=== PATIENT | male | born 1965 | race Caucasian/White ===

== ENCOUNTER → 2021-02-08 14:15 | Outpatient (CLI) | payer OTHER, SELFPAY ==
[2021-02-08 14:52] LABS: COVID19 -Nasal RAPID Negative (Negative)
== END ==
PROVIDERS: PCP Family Medicine; Visit Provider Surgery
DX: Z01.812 Encounter for preprocedural laboratory examination (principal); Z20.822 Contact with and (suspected) exposure to COVID-19
CPT/HCPCS: 87635; C9803

== ENCOUNTER 2021-02-09 09:03 | Day surgery (SDC) | payer OTHER, SELFPAY ==
--- NOTE | 2021-02-09 | PATH_ITS ---
[facility] [place] Accession Number: [id number] . 01 Material submitted: . PART A: cecum - CECAL POLYP PART B: sigmoid colon - SIGMOID WITH RANDOM BIOPSY PART C: rectum - RANDOM RECTUM BIOPSY . 02 Diagnosis: A. Cecum, Polyp, Biopsy: Tubular adenoma. . B. Sigmoid, Random Biopsy: Colonic mucosa with no diagnostic abnormality. Negative for active, chronic, and microscopic colitis. Negative for dysplasia and malignancy. . C. Rectum, Random Biopsy: Colonic mucosa with no diagnostic abnormality. Negative for active, chronic, and microscopic colitis. Negative for dysplasia and malignancy. MR 02/13/2021 1121 Local . 02 Electronically signed: . America Villa MD, Pathologist NPI- [id number] . 01 Gross description: . Part A: CECAL POLYP: Received in formalin is 1 fragment(s) of scott, soft tissue measuring 0.3 x 0.3 x 0.3 cm submitted entirely in 1 cassette(s) Part B: SIGMOID WITH RANDOM BIOPSY: Received in formalin are 8 fragment(s) of scott, soft tissue measuring 0.6 x 0.2 x 0.1 cm to 0.2 x 0.2 x 0.1 cm submitted entirely in 1 cassette(s) Part C: RANDOM RECTUM BIOPSY: Received in formalin are 2 fragment(s) of scott, soft tissue measuring 0.5 x 0.3 x 0.1 cm to 0.3 x 0.3 x 0.1 cm submitted entirely in 1 cassette(s) /QBJ 02/10/2021 0841 Local . 02 Pathologist provided ICD-10: Z12.0 . 02 CPT . 848837, 978976, [id number] Performed at: [address] [place] [address] [address], [place], [place] [id number] MD Ralph Jordan MD Phone: [phone] Performed at: [id number] [place] [id number] MD America Villa MD Phone: [phone]
[2021-02-09 09:19] VITALS: BP 116/74; PULSE 68; RESP 18; TEMP 36.3; O2SAT 97; BMI 34.0
[2021-02-09] MEDS: LACTATED RINGERS 1,000 ML 42 ML IV (09:49)
--- NOTE | 2021-02-09 10:38 | PM.HP.1 ---
History of Present Illness History of Present Illness Date Patient Seen: 02/09/21 Time Patient Seen: 10:38 Chief complaint: SDC Narrative: Bonifacio Silvestre is a 55 is here for colonoscopy. He had a colonoscopy about 5 years ago with a finding of a polyp. Patient History Medical History Chicken pox (~1978) Erectile dysfunction Fractures (~2014) Melanoma Obstructive sleep apnea Prediabetes Skin cancer Family & Social History Social History: household members spouse Tobacco & Substance use: Smoking Status Never smoker alcohol intake current alcohol intake frequency holiday/special occasion Substance Use Type marijuana Meds Home Medications and Allergies Home Medications Medication Instructions Recorded Confirmed Type sildenafil (pulm.hypertension) 20 80 - 100 mg PO PRN PRN MDD 100 02/09/21 02/09/21 History mg tablet Allergies Allergy/AdvReac Type Severity Reaction Status Date / Time No Known Drug Allergies Allergy Verified 02/09/21 09:14 Exam Vital Signs (past 8 hours): - 02/09/21 09:19 Temperature 97.4 F L Pulse Rate 68 Respiratory Rate 18 Blood Pressure 116/74 Pulse Oximetry 97 Oxygen Delivery Method Room Air Const General: healthy appearing Eyes General: appearance normal, both eyes and all related structures Resp Effort & Inspection: normal respiratory effort Assessment & Plan Assessment and plan (1) Colon cancer screening: Status: Acute Plan We will proceed with colonoscopy. We reviewed the risks and benefits. He would like to proceed. Time Spent With Patient Critical Care time: I spent a total of [] minutes of critical care time on this patient's care today; this time is exclusive of procedural time.
--- NOTE | 2021-02-09 10:39 | PM.PREOP ---
Pre-operative Note COVID-19 COVID-19 status: Negative Result date/Date tested (Pos, Neg/Pending): 02/08/21 Interval Note History & Physical reviewed/Exam performed by Physician: Yes Changes to H&P: No ASA Class (for procedural sedation): II
[2021-02-09] MEDS: MIDAZOLAM 5 MG/5 ML VIAL IV (11:16)
[2021-02-09] MEDS: fentaNYL 250 MCG/5 ML INJ IV (11:16)
--- NOTE | 2021-02-09 11:25 | PM.OP.COLON ---
Operative Date/Time/Diagnoses Date of procedure: 02/09/21 Time of procedure: 11:25 Pre-op diagnosis: History of colon polyp Post-op diagnosis: same Procedure & Clinicians Study performed: Colonoscopy Same procedure as scheduled: Yes Indications: History of colon polyps Surgeon: Davidson Mello Procedure Notes SCOAP/Timeout: Yes Procedure in detail: Procedure: The patient was brought to the endoscopy suite, placed in left lateral decubitus position. The patient was connected to monitoring devices. A time-out was performed. Sedation was administered. Once the patient was adequately sedated, a digital rectal exam was performed and was normal. The scope was then inserted and advanced to the cecum where the appendiceal orifice was identified and photographed. The scope was then slowly withdrawn over greater than 6 minutes. Mucosa was thoroughly inspected. There was a subcentimeter polyp in the cecum. There was removed with cold snare. There was some patchy erythema in the sigmoid and rectum. Random biopsies were taken from the sigmoid colon as well as the rectum. The scope was retroflexed in the rectum. No other abnormalities were noted. The scope was straightened and removed. The patient was awakened and brought to recovery. Versed: 5 mg Fentanyl: 125 mcg EBL: 2 mL Findings: Sigmoid and rectal erythema and cecal polyp Scope withdrawal time: 22 Sedation minutes: 37 Findings: colitis and polyp(s) Post-procedure Recommendations: Will call with biopsy results
[2021-02-09 11:26] VITALS: BP 123/70; PULSE 68; RESP 16; TEMP 36.8; O2SAT 99
[2021-02-09 11:31] VITALS: BP 113/63; PULSE 66; RESP 12; O2SAT 100
[2021-02-09 11:36] VITALS: BP 112/66; PULSE 68; RESP 16; O2SAT 99
[2021-02-09 11:43] VITALS: BP 114/68; PULSE 68; RESP 14; TEMP 36.8; O2SAT 100
== END 2021-02-09 11:54 | disposition home or self-care (01) ==
PROVIDERS: PCP Family Medicine; Referring Provider Surgery; Visit Provider Surgery
PROC: 0DJD8ZZ Inspection of Lower Intestinal Tract, Via Natural or Artificial Opening Endoscopic (ICD-10-PCS; CPT 45378; principal; 2021-02-09 10:00)
DX: Z12.11 Encounter for screening for malignant neoplasm of colon (principal); Z86.010 Personal history of colon polyps; D12.0 Benign neoplasm of cecum
CPT/HCPCS: 45385; 45380; 99152; 99153; J2250; J3010

== ENCOUNTER → 2021-04-10 11:53 | Outpatient (CLI) | payer OTHER, SELFPAY ==
--- NOTE | 2021-04-10 11:54 | DI.RAD.S_ITS ---
PROCEDURE: XR HAND RT MIN 3V INDICATIONS: bilateral hand/finger swelling TECHNIQUE: 3 views of the hand(s) acquired. COMPARISON: None. FINDINGS: A portion of the 4th proximal phalanx is obscured by the patient's ring. Bones: No fractures or dislocations. Deficiency of the 3rd distal phalanx tuft, which may reflect remote traumatic injury. Carpal bones are normally aligned. No suspicious bony lesions. Mild osteophytosis of the 1st carpometacarpal articulation. Soft tissues: No suspicious soft tissue calcifications. IMPRESSION: No acute osseous abnormality. Dictated by: Andrade Larose M.D. on 04/10/2021 at 13:34 Approved by: Andrade Larose M.D. on 04/10/2021 at 13:35
--- NOTE | 2021-04-10 11:54 | DI.RAD.S_ITS ---
PROCEDURE: XR HAND LT MIN 3V INDICATIONS: bilateral hand/finger swelling TECHNIQUE: 3 views of the hand(s) acquired. COMPARISON: None. FINDINGS: A portion of the 4th proximal phalanx is obscured by the patient's ring. Bones: No fractures or dislocations. Mild osteophytosis of the 1st carpometacarpal articulation. Small periarticular lucency involving the radial aspect of the 2nd proximal phalanx base. Carpal bones are normally aligned. No suspicious bony lesions. Soft tissues: No suspicious soft tissue calcifications. IMPRESSION: No acute osseous abnormality. Dictated by: Andrade Larose M.D. on 04/10/2021 at 13:32 Approved by: Andrade Larose M.D. on 04/10/2021 at 13:34
== END ==
PROVIDERS: PCP Family Medicine; Referring Provider Family Medicine; Visit Provider Family Medicine
DX: R73.03 Prediabetes (principal); M79.641 Pain in right hand; M79.89 Other specified soft tissue disorders; M79.642 Pain in left hand
CPT/HCPCS: 73130

== ENCOUNTER 2022-01-17 15:15 | Outpatient (RCR) | payer OTHER, SELFPAY ==
--- NOTE | 2021-08-23 17:44 | PT.OIE ---
Current Diagnoses Pain in right knee (08/23/21) Pain in left knee (08/23/21) Past Medical History (Last Reviewed 03/21/21 @ 15:18 by Kash Dorsey MD) Chicken pox (~1978) Erectile dysfunction Fractures (~2014) Melanoma Obstructive sleep apnea Prediabetes Skin cancer Visit Care Team Role Provider Type Pj Noyola MD Attending Provider Physician Family Provider Primary Care Provider Referring Provider Specialty: Family Practice Address: [address] [place] [address], [facility] Email: [email or web address] Physical Therapy Initial Evaluation PT-OP-A Visit Information Start: 08/22/21 17:51 Freq: Status: Active Protocol: Document 08/23/21 08:15 SAK (Rec: 08/23/21 09:04 SAK [id number]) Out-Patient Physical Therapy Visit Information Visit Information Visit Type Initial Evaluation Visit Start Time 08:15 Visit Stop Time 09:10 Total Visit Minutes 55 Visit Number 1 Evaluation Information Evaluation Date 08/23/21 PT-OP-B Current Condition Start: 08/22/21 17:51 Freq: Status: Active Protocol: Document 08/23/21 08:15 SAK (Rec: 08/23/21 09:04 SAK [id number]) Current Condition History of Current Condition Onset Date 6 wks Current Complaints right knee pain History of Current Condition history of left knee pain starting in college after fall onto knee from counter height ; swelling, did therapy, wore a brace, stopped running a few years later after spraining ankle. 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 5-6 weeks ago onset of right knee pain, no known injury except prolonged driving. Broke right arm 2014, wore compression socks, swelled in left knee. Cortisone shot helpful left knee. 2 other episodes of left knee pain over past couple years resolved with ice and heat. Used heat last night. Has neoprene sleeve wears while walking. Prior Treatments and Tests no imaging. Treatment Goals Patient/Caregiver Goals decrease right knee pain, be able to return to prior level of activity Prior Functional Status Baseline Function- ADL's Independent Baseline Function- Mobility Independent Baseline Function- Gait independent without device Baseline Function- Work/School volunteers in IT for [employer] Baseline Function- Recreation/Hobbies took walks, gardening Current Functional Impairments (Reported) Functional Limitations- ADL's painful Functional Limitations- Mobility/Gait painful and limited Functional Limitations- Recreation/ unable to take walks, garden Hobbies comfortably PT-OP-C Subjective Start: 08/22/21 17:51 Freq: Status: Active Protocol: Document 08/23/21 08:15 [facility] (Rec: 08/28/21 18:00 [facility] [id number]) Patient Questionnaires Lower Extremity Functional Scale LEFS Score 48 OP-PT Pain Assessment Pain Assessment Grid Paper Pain Assessment Grid Completed Yes Location right knee Intensity 5 Description Aching,Burning,Pinching, Pressure,With Movement Frequency Frequent Pain Aggravating Factors Standing,Walking,Stair Climbing,Bending Pain Alleviating Factors Cold,Heat,Inactivity Home Pain Medication Use Pain Medications Used Yes PT-OP-G Mobility & Gait Start: 08/22/21 17:51 Freq: Status: Active Protocol: Document 08/23/21 08:15 [facility] (Rec: 08/28/21 18:00 [facility] [id number]) OP Gait Assessment Gait Gait Assistance Required: Independent Distance (Feet) 50 Assistive Devices Assistive Device Straight Cane Gait Deviations General Gait Pattern Antalgic,Decreased Stride Length,Decreased Feet Clearance,Lateral Trunk Lean Factors Limiting Gait Function Factors Limiting Gait Function Decreased Strength,Pain Stair Climbing Evaluation Devices Stair Climbing Assistive Devices Left Railing,Right Railing Technique/Endurance Stair Climbing Direction Ascend and Descend Stair Climbing Technique Step to Step Number of Steps Climbed 4 PT-OP-H Neuro Start: 08/22/21 17:51 Freq: Status: Active Protocol: Document 08/23/21 08:15 [facility] (Rec: 08/28/21 18:00 [facility] [id number]) Sensation Evaluation Gross Sensation Gross Sensation WNL PT-OP-J Posture/Palpation/Skin Start: 08/22/21 17:51 Freq: Status: Active Protocol: Document 08/23/21 08:15 [facility] (Rec: 08/28/21 18:00 [facility] [id number]) Posture Evaluation Position Standing Head/C-Spine Posture Forward Head T-Spine Posture Increased Kyphosis Knee Posture (R) Genu Valgus,(R) Excess Flexion Ankle/Foot Posture (L) Pronated,(R) Pronated Skin Assessment Edema Assessment right knee Edema Type Non-Pitting Edema Degree 2+ Edema Appearance Puffy Subjective Edema Description Tightness Circumference Measurement knee Location left 46.4, right 48 calf Location left 46.5, right 45.8 ankle Location left 30.9 right 32.3 PT-OP-K Range of Motion Start: 08/22/21 17:51 Freq: Status: Active Protocol: Document 08/23/21 08:15 [facility] (Rec: 08/28/21 18:00 [facility] [id number]) Hip Goniometric Range of Motion Hip Right Flexion w/Knee Flexed 95 Straight Leg Raise 45 Extension 0 Abduction 20 Internal Rotation 15 External Rotation 40 Left Flexion w/Knee Flexed 95 Straight Leg Raise 60 Extension 0 Abduction 20 Internal Rotation 15 External Rotation 40 Knee Goniometric Range of Motion Knee Right Flexion Active (degrees) 95 Flexion Passive (degrees) 98 Extension Active (degrees) 8 Extension Passive (degrees) 5 Left Knee ROM WFL Yes Knee ROM Limitations Knee ROM Limitations Pain,Swelling PT-OP-L Special Tests Start: 08/22/21 17:51 Freq: Status: Active Protocol: Document 08/23/21 08:15 SAK (Rec: 08/28/21 18:00 [facility] [id number]) Special Tests Knee Special Tests Varus- 25 Degrees Test Results negative Valgus- 25 Degrees Test Results negative Juanjo Test Test Results negative Patellar Grind Test Test Results negative PT-OP-M Strength Start: 08/22/21 17:51 Freq: Status: Active Protocol: Document 08/23/21 08:15 [facility] (Rec: 08/28/21 18:00 [facility] [id number]) Hip Strength Hip Manual Muscle Testing Right Flexion (L2) 4 Good Extension (S1) 4- Good- External Rotation 3+ Fair+ Internal Rotation 3+ Fair+ Left Flexion (L2) 4 Good Extension (S1) 4- Good- External Rotation 4- Good- Internal Rotation 4- Good- Knee Strength Knee Manual Muscle Testing Right Flexion (S2) 4- Good- Extension (L3) 4- Good- Left Flexion (S2) 4+ Good+ Extension (L3) 4+ Good+ Ankle/Foot Strength Ankle and Foot Manual Muscle Testing Right Dorsiflexion (L4) 4+ Good+ Plantarflexion (S1) 4+ Good+ Left Dorsiflexion (L4) 4+ Good+ Plantarflexion (S1) 4+ Good+ PT-OP-Q Treatments Start: 08/22/21 17:51 Freq: Status: Active Protocol: Document 08/23/21 08:15 [facility] (Rec: 08/28/21 18:00 [facility] [id number]) Self-Care/Home Management Treatment Education Patient Education Home Exercise Program,Pain Management Other Education discussed POC, patient is in agreement. PT-OP-R Modalities Start: 08/22/21 17:51 Freq: Status: Active Protocol: Document 08/23/21 08:15 SAK (Rec: 08/28/21 18:00 [facility] [id number]) Hot Pack/Cold Pack Treatment Cold Pack Location right knee Patient Position Hooklying Treatment Duration (minutes) 10 Patient Tolerance Good PT-OP-T Assessment and Plan Start: 08/22/21 17:51 Freq: Status: Active Protocol: Document 08/23/21 08:15 SAK (Rec: 08/28/21 18:00 [facility] [id number]) Physical Therapy Assessment Rehab Potential Rehabilitation Potential Good Evaluation Complexity Number of Personal Factors/Comorbidities 1-2 Number of Body Systems Impaired 3 Clinical Presentation at Evaluation Evolving Impairments Impairments Activity Tolerance,Edema,Gait, Pain,Strength Goals Four Impairment no HEP Short Term Goal (STG) patient will be instrsucted in progressive HEP for purposes of left knee strengthening and flexibility STG Duration 09/22/21 Information Management Manager Goal (LTG) Patient will be indepenent and compliant to HEP and demonstrate improved left knee strength of 5/5 to allow him to return to prior level of function LTG Duration 10/27/21 Three Impairment antalgic gait, step-to pattern on stairs Short Term Goal (STG) patient will be able to walk with least restrictive device with minimal to no limp STG Duration 09/22/21 Information Management Manager Goal (LTG) Patient will be able to ascend and descend stairs with alternating step pattern as evidence of improved strength and decreased pain left knee LTG Duration 10/27/21 Two Impairment pain left knee 5/10 on pain scale Shelter Goal (LTG) Decrease left knee pain to no greater than 2/10 on pain scale to allow patient to return to taking walks One Impairment activity tolerance Impairment Lower extremity functional scale 48% Short Term Goal (STG) Improve LEFS score to at least 60% as measure of improved left knee function STG Duration 09/22/21 Shelter Goal (LTG) Improve LEFS score to at least 75% as measure of improved left knee function LTG Duration 10/27/21 Assessment Summary Assessment Patient presents to PT with function-limiting pain left knee. No imaging has been done. Signs and symptoms are consistent with arthritis with possible meniscal involvement . The pain limits his ability to do all his usual activities including taking walks, makes ambulation on stairs and getting up from a chair very difficult. He currently doesn't have any regular exercise program. Feel he would benefit highly from PT to decrease his pain and improve his function, addressing the above goals. POC discussed with patient and he is in agreement. Physical Therapy Plan Frequency and Duration Frequency of Treatment 2x/Week Duration of Treatment 8 weeks Plan of Care Start Date 08/23/21 Plan of Care End Date 10/27/21 Therapeutic Interventions Therapeutic Interventions Aquatic Therapy,Gait Training, Home Exercise Program,Manual Therapy,Neuromuscular Re- education,Patient/Caregiver Education,Self-Care/Home Management,Soft Tissue Mobilization,Taping, Therapeutic Activities, Therapeutic Exercises Next Visit Focus/Plan Next Note Type Treatment Note Next Visit Plan Review HEP, progress with gentle knee ROM and strengthening. Modalities and manual therapy as indicated for pain. Trial kinesiotape.
--- NOTE | 2021-08-23 17:44 | PT.OPPOC ---
Physical, Occupational & Speech Therapy At [facility] Current Diagnoses Pain in right knee (08/23/21) Pain in left knee (08/23/21) Visit Care Team Role Provider Type Pj Noyola MD Attending Provider Physician Family Provider Primary Care Provider Referring Provider Specialty: Family Practice Address: [address] [place] [address] Email: [email or web address] Plan Of Care PT-OP-T Assessment and Plan Start: 08/22/21 17:51 Freq: Status: Active Protocol: Document 08/23/21 08:15 SAK (Rec: 08/28/21 18:00 SAK [id number]) Physical Therapy Assessment Rehab Potential Rehabilitation Potential Good Evaluation Complexity Number of Personal Factors/Comorbidities 1-2 Number of Body Systems Impaired 3 Clinical Presentation at Evaluation Evolving Impairments Impairments Activity Tolerance,Edema,Gait, Pain,Strength Goals Four Impairment no HEP Short Term Goal (STG) patient will be instrsucted in progressive HEP for purposes of left knee strengthening and flexibility STG Duration 09/22/21 Shelter Goal (LTG) Patient will be indepenent and compliant to HEP and demonstrate improved left knee strength of 5/5 to allow him to return to prior level of function LTG Duration 10/27/21 Three Impairment antalgic gait, step-to pattern on stairs Short Term Goal (STG) patient will be able to walk with least restrictive device with minimal to no limp STG Duration 09/22/21 Shelter Goal (LTG) Patient will be able to ascend and descend stairs with alternating step pattern as evidence of improved strength and decreased pain left knee LTG Duration 10/27/21 Two Impairment pain left knee 5/10 on pain scale Shelter Goal (LTG) Decrease left knee pain to no greater than 2/10 on pain scale to allow patient to return to taking walks One Impairment activity tolerance Impairment Lower extremity functional scale 48% Short Term Goal (STG) Improve LEFS score to at least 60% as measure of improved left knee function STG Duration 09/22/21 Shelter Goal (LTG) Improve LEFS score to at least 75% as measure of improved left knee function LTG Duration 10/27/21 Assessment Summary Assessment Patient presents to PT with function-limiting pain left knee. No imaging has been done. Signs and symptoms are consistent with arthritis with possible meniscal involvement . The pain limits his ability to do all his usual activities including taking walks, makes ambulation on stairs and getting up from a chair very difficult. He currently doesn't have any regular exercise program. Feel he would benefit highly from PT to decrease his pain and improve his function, addressing the above goals. POC discussed with patient and he is in agreement. Physical Therapy Plan Frequency and Duration Frequency of Treatment 2x/Week Duration of Treatment 8 weeks Plan of Care Start Date 08/23/21 Plan of Care End Date 10/27/21 Therapeutic Interventions Therapeutic Interventions Aquatic Therapy,Gait Training, Home Exercise Program,Manual Therapy,Neuromuscular Re- education,Patient/Caregiver Education,Self-Care/Home Management,Soft Tissue Mobilization,Taping, Therapeutic Activities, Therapeutic Exercises Next Visit Focus/Plan Next Note Type Treatment Note Next Visit Plan Review HEP, progress with gentle knee ROM and strengthening. Modalities and manual therapy as indicated for pain. Trial kinesiotape. Plan of Care Dates Plan of Care Start Date 08/23/21 Plan of Care End Date 10/27/21 Electronically Signed by: Reema Long, PT 08/29/21 0367 If you are in agreement with this Plan of Care, please return a signed and dated copy. I have reviewed this Plan of Care and certify that the skilled therapy services above are required to meet the patient?s needs. Physician Signature Date Printed Name and Credentials Clinical Instructor Signature Printed Name and Credentials
--- NOTE | 2021-08-31 17:45 | PT.OTN ---
Current Diagnoses Pain in right knee (08/31/21) Pain in left knee (08/31/21) Difficulty in walking, not elsewhere classified (08/31/21) Weakness (08/31/21) Physical Therapy Treatment Note PT-OP-A Visit Information Start: 08/22/21 17:51 Freq: Status: Active Protocol: Document 08/31/21 14:45 SAK (Rec: 08/31/21 15:19 SAK [id number]) Out-Patient Physical Therapy Visit Information Visit Information Visit Type Treatment Note Visit Start Time 14:40 Visit Stop Time 15:25 Total Visit Minutes 45 Visit Number 2 Evaluation Information Evaluation Date 08/23/21 PT-OP-B Current Condition Start: 08/22/21 17:51 Freq: Status: Active Protocol: Document 08/31/21 14:45 SAK (Rec: 08/31/21 15:19 [facility] [id number]) Current Condition History of Current Condition Onset Date 6 wks Current Complaints right knee pain History of Current Condition history of left knee pain starting in college after fall onto knee from counter height ; swelling, did therapy, wore a brace, stopped running a few years later after spraining ankle. 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 5-6 weeks ago onset of right knee pain, no known injury except prolonged driving. Broke right arm 2014, wore compression socks, swelled in left knee. Cortisone shot helpful left knee. 2 other episodes of left knee pain over past couple years resolved with ice and heat. Used heat last night. Has neoprene sleeve wears while walking. Prior Treatments and Tests no imaging. PT-OP-C Subjective Start: 08/22/21 17:51 Freq: Status: Active Protocol: Document 08/31/21 14:45 SAK (Rec: 08/31/21 15:19 SAK [id number]) OP-PT Subjective Patient Comments Patient Comments Doing HEP, feels they are helping. Fell at [place] 2 days ago onto right knee, more sore, no bruising. [place] better after first PT session. Will have access to a pool when gone 11 of September week, would like recommendations. PT-OP-G Mobility & Gait Start: 08/22/21 17:51 Freq: Status: Active Protocol: Document 08/23/21 08:15 [facility] (Rec: 08/28/21 18:00 [facility] [id number]) OP Gait Assessment Gait Gait Assistance Required: Independent Distance (Feet) 50 Assistive Devices Assistive Device Straight Cane Gait Deviations General Gait Pattern Antalgic,Decreased Stride Length,Decreased Feet Clearance,Lateral Trunk Lean Factors Limiting Gait Function Factors Limiting Gait Function Decreased Strength,Pain Stair Climbing Evaluation Devices Stair Climbing Assistive Devices Left Railing,Right Railing Technique/Endurance Stair Climbing Direction Ascend and Descend Stair Climbing Technique Step to Step Number of Steps Climbed 4 PT-OP-H Neuro Start: 08/22/21 17:51 Freq: Status: Active Protocol: Document 08/23/21 08:15 [facility] (Rec: 08/28/21 18:00 [facility] [id number]) Sensation Evaluation Gross Sensation Gross Sensation WNL PT-OP-J Posture/Palpation/Skin Start: 08/22/21 17:51 Freq: Status: Active Protocol: Document 08/23/21 08:15 [facility] (Rec: 08/28/21 18:00 [facility] [id number]) Posture Evaluation Position Standing Head/C-Spine Posture Forward Head T-Spine Posture Increased Kyphosis Knee Posture (R) Genu Valgus,(R) Excess Flexion Ankle/Foot Posture (L) Pronated,(R) Pronated Skin Assessment Edema Assessment right knee Edema Type Non-Pitting Edema Degree 2+ Edema Appearance Puffy Subjective Edema Description Tightness Circumference Measurement knee Location left 46.4, right 48 calf Location left 46.5, right 45.8 ankle Location left 30.9 right 32.3 PT-OP-K Range of Motion Start: 08/22/21 17:51 Freq: Status: Active Protocol: Document 08/23/21 08:15 SAK (Rec: 08/28/21 18:00 [facility] [id number]) Hip Goniometric Range of Motion Hip Right Flexion w/Knee Flexed 95 Straight Leg Raise 45 Extension 0 Abduction 20 Internal Rotation 15 External Rotation 40 Left Flexion w/Knee Flexed 95 Straight Leg Raise 60 Extension 0 Abduction 20 Internal Rotation 15 External Rotation 40 Knee Goniometric Range of Motion Knee Right Flexion Active (degrees) 95 Flexion Passive (degrees) 98 Extension Active (degrees) 8 Extension Passive (degrees) 5 Left Knee ROM WFL Yes Knee ROM Limitations Knee ROM Limitations Pain,Swelling PT-OP-L Special Tests Start: 08/22/21 17:51 Freq: Status: Active Protocol: Document 08/23/21 08:15 [facility] (Rec: 08/28/21 18:00 [facility] [id number]) Special Tests Knee Special Tests Varus- 25 Degrees Test Results negative Valgus- 25 Degrees Test Results negative Juanjo Test Test Results negative Patellar Grind Test Test Results negative PT-OP-M Strength Start: 08/22/21 17:51 Freq: Status: Active Protocol: Document 08/23/21 08:15 [facility] (Rec: 08/28/21 18:00 [facility] [id number]) Hip Strength Hip Manual Muscle Testing Right Flexion (L2) 4 Good Extension (S1) 4- Good- External Rotation 3+ Fair+ Internal Rotation 3+ Fair+ Left Flexion (L2) 4 Good Extension (S1) 4- Good- External Rotation 4- Good- Internal Rotation 4- Good- Knee Strength Knee Manual Muscle Testing Right Flexion (S2) 4- Good- Extension (L3) 4- Good- Left Flexion (S2) 4+ Good+ Extension (L3) 4+ Good+ Ankle/Foot Strength Ankle and Foot Manual Muscle Testing Right Dorsiflexion (L4) 4+ Good+ Plantarflexion (S1) 4+ Good+ Left Dorsiflexion (L4) 4+ Good+ Plantarflexion (S1) 4+ Good+ PT-OP-Q Treatments Start: 08/22/21 17:51 Freq: Status: Active Protocol: Document 08/31/21 14:45 [facility] (Rec: 08/31/21 15:19 [facility] [id number]) Cardio Equipment Bicycle (Upright) Duration (Minutes) 8 Resistance 4 Other cues for circular motion, activate hamstrings Gym Equipment Shuttle Recovery Unilateral Squats Resistance 37 Shuttle Recovery Platform Stable Bilateral Squats Resistance 75 Shuttle Recovery Platform Stable Therapeutic Exercises Supine Exercises SLR Reps/Minutes 10x bridge Reps/Minutes 10x Prone Exercises quad stretch Equipment Used strap Reps/Minutes 2x30 Sidelying Exercises hip abduction Reps/Minutes 10x Comments cues for alignment Sitting Exercises hamstring stretch Reps/Minutes 2x30 Standing Exercises hamstring stretch Reps/Minutes 2x30 Comments counter Self-Care/Home Management Treatment Education Patient Education Home Exercise Program,Pain Management Other Education updated HEP PT-OP-R Modalities Start: 08/22/21 17:51 Freq: Status: Active Protocol: Document 08/31/21 14:45 [facility] (Rec: 08/31/21 17:45 [facility] [id number]) Hot Pack/Cold Pack Treatment Cold Pack Location right knee Patient Position Hooklying Treatment Duration (minutes) 10 Patient Tolerance Good PT-OP-T Assessment and Plan Start: 08/22/21 17:51 Freq: Status: Active Protocol: Document 08/31/21 14:45 [facility] (Rec: 08/31/21 17:45 [facility] [id number]) Physical Therapy Assessment Impairments Impairments Activity Tolerance,Edema,Gait, Pain,Strength Goals Four Impairment no HEP Short Term Goal (STG) patient will be instrsucted in progressive HEP for purposes of rightknee strengthening and flexibility STG Duration 09/22/21 Clothes Designer Goal (LTG) Patient will be indepenent and compliant to HEP and demonstrate improved right knee strength of 5/5 to allow him to return to prior level of function LTG Duration 10/27/21 Three Impairment antalgic gait, step-to pattern on stairs Short Term Goal (STG) patient will be able to walk with least restrictive device with minimal to no limp STG Duration 09/22/21 Clothes Designer Goal (LTG) Patient will be able to ascend and descend stairs with alternating step pattern as evidence of improved strength and decreased pain right knee LTG Duration 10/27/21 Two Impairment pain right knee 5/10 on pain scale Group Home Goal (LTG) Decrease right knee pain to no greater than 2/10 on pain scale to allow patient to return to taking walks One Impairment activity tolerance Impairment Lower extremity functional scale 48% Short Term Goal (STG) Improve LEFS score to at least 60% as measure of improved right knee function STG Duration 09/22/21 Group Home Goal (LTG) Improve LEFS score to at least 75% as measure of improved right knee function LTG Duration 10/27/21 Progress Towards Goals Progress Towards Goals Progressing Toward Goals Assessment Summary Assessment Good response to HEP, patient compliant and motivated. Fall caused some soreness but no obvious injury. Patient able to ambulate with less limp, especially with cues and concentration. Able to progress HEP and was issued and updated written HEP. Physical Therapy Plan Frequency and Duration Frequency of Treatment 2x/Week Duration of Treatment 8 weeks Plan of Care Start Date 08/23/21 Plan of Care End Date 10/27/21 Therapeutic Interventions Therapeutic Interventions Aquatic Therapy,Gait Training, Home Exercise Program,Manual Therapy,Neuromuscular Re- education,Patient/Caregiver Education,Self-Care/Home Management,Soft Tissue Mobilization,Taping, Therapeutic Activities, Therapeutic Exercises Next Visit Focus/Plan Next Note Type Treatment Note Next Visit Plan Increase resistance on exercise bike, add resisted gait as tolerated, ankle weights to SAQ.
--- NOTE | 2021-09-07 16:53 | PT.OTN ---
Current Diagnoses Pain in right knee (09/07/21) Pain in left knee (09/07/21) Difficulty in walking, not elsewhere classified (09/07/21) Weakness (09/07/21) Physical Therapy Treatment Note PT-OP-A Visit Information Start: 08/22/21 17:51 Freq: Status: Active Protocol: Document 09/07/21 13:44 SAK (Rec: 09/07/21 14:35 SAK [id number]) Out-Patient Physical Therapy Visit Information Visit Information Visit Type Treatment Note Visit Start Time 13:45 Visit Stop Time 14:46 Total Visit Minutes 61 Visit Number 3 Evaluation Information Evaluation Date 08/23/21 PT-OP-B Current Condition Start: 08/22/21 17:51 Freq: Status: Active Protocol: Document 09/07/21 13:44 SAK (Rec: 09/07/21 14:35 SAK [id number]) Current Condition History of Current Condition Onset Date 6 wks Current Complaints right knee pain History of Current Condition history of left knee pain starting in college after fall onto knee from counter height ; swelling, did therapy, wore a brace, stopped running a few years later after spraining ankle. 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 5-6 weeks ago onset of right knee pain, no known injury except prolonged driving. Broke right arm 2014, wore compression socks, swelled in left knee. Cortisone shot helpful left knee. 2 other episodes of left knee pain over past couple years resolved with ice and heat. Used heat last night. Has neoprene sleeve wears while walking. Prior Treatments and Tests no imaging. Treatment Goals Patient/Caregiver Goals decrease right knee pain, be able to return to prior level of activity PT-OP-C Subjective Start: 08/22/21 17:51 Freq: Status: Active Protocol: Document 09/07/21 13:44 SAK (Rec: 09/07/21 14:35 SAK [id number]) OP-PT Subjective Patient Comments Patient Comments Less pain, less limping. Got yoga strap in mail. Will be on vacation for one week; can take theraband and strap. PT-OP-G Mobility & Gait Start: 08/22/21 17:51 Freq: Status: Active Protocol: Document 08/23/21 08:15 [facility] (Rec: 08/28/21 18:00 [facility] [id number]) OP Gait Assessment Gait Gait Assistance Required: Independent Distance (Feet) 50 Assistive Devices Assistive Device Straight Cane Gait Deviations General Gait Pattern Antalgic,Decreased Stride Length,Decreased Feet Clearance,Lateral Trunk Lean Factors Limiting Gait Function Factors Limiting Gait Function Decreased Strength,Pain Stair Climbing Evaluation Devices Stair Climbing Assistive Devices Left Railing,Right Railing Technique/Endurance Stair Climbing Direction Ascend and Descend Stair Climbing Technique Step to Step Number of Steps Climbed 4 PT-OP-H Neuro Start: 08/22/21 17:51 Freq: Status: Active Protocol: Document 08/23/21 08:15 [facility] (Rec: 08/28/21 18:00 [facility] [id number]) Sensation Evaluation Gross Sensation Gross Sensation WNL PT-OP-J Posture/Palpation/Skin Start: 08/22/21 17:51 Freq: Status: Active Protocol: Document 08/23/21 08:15 [facility] (Rec: 08/28/21 18:00 [facility] [id number]) Posture Evaluation Position Standing Head/C-Spine Posture Forward Head T-Spine Posture Increased Kyphosis Knee Posture (R) Genu Valgus,(R) Excess Flexion Ankle/Foot Posture (L) Pronated,(R) Pronated Skin Assessment Edema Assessment right knee Edema Type Non-Pitting Edema Degree 2+ Edema Appearance Puffy Subjective Edema Description Tightness Circumference Measurement knee Location left 46.4, right 48 calf Location left 46.5, right 45.8 ankle Location left 30.9 right 32.3 PT-OP-K Range of Motion Start: 08/22/21 17:51 Freq: Status: Active Protocol: Document 08/23/21 08:15 [facility] (Rec: 08/28/21 18:00 [facility] [id number]) Hip Goniometric Range of Motion Hip Right Flexion w/Knee Flexed 95 Straight Leg Raise 45 Extension 0 Abduction 20 Internal Rotation 15 External Rotation 40 Left Flexion w/Knee Flexed 95 Straight Leg Raise 60 Extension 0 Abduction 20 Internal Rotation 15 External Rotation 40 Knee Goniometric Range of Motion Knee Right Flexion Active (degrees) 95 Flexion Passive (degrees) 98 Extension Active (degrees) 8 Extension Passive (degrees) 5 Left Knee ROM WFL Yes Knee ROM Limitations Knee ROM Limitations Pain,Swelling PT-OP-L Special Tests Start: 08/22/21 17:51 Freq: Status: Active Protocol: Document 08/23/21 08:15 [facility] (Rec: 08/28/21 18:00 [facility] [id number]) Special Tests Knee Special Tests Varus- 25 Degrees Test Results negative Valgus- 25 Degrees Test Results negative Juanjo Test Test Results negative Patellar Grind Test Test Results negative PT-OP-M Strength Start: 08/22/21 17:51 Freq: Status: Active Protocol: Document 08/23/21 08:15 [facility] (Rec: 08/28/21 18:00 [facility] [id number]) Hip Strength Hip Manual Muscle Testing Right Flexion (L2) 4 Good Extension (S1) 4- Good- External Rotation 3+ Fair+ Internal Rotation 3+ Fair+ Left Flexion (L2) 4 Good Extension (S1) 4- Good- External Rotation 4- Good- Internal Rotation 4- Good- Knee Strength Knee Manual Muscle Testing Right Flexion (S2) 4- Good- Extension (L3) 4- Good- Left Flexion (S2) 4+ Good+ Extension (L3) 4+ Good+ Ankle/Foot Strength Ankle and Foot Manual Muscle Testing Right Dorsiflexion (L4) 4+ Good+ Plantarflexion (S1) 4+ Good+ Left Dorsiflexion (L4) 4+ Good+ Plantarflexion (S1) 4+ Good+ PT-OP-Q Treatments Start: 08/22/21 17:51 Freq: Status: Active Protocol: Document 09/07/21 13:44 [facility] (Rec: 09/07/21 14:35 [facility] [id number]) Cardio Equipment Bicycle (Upright) Duration (Minutes) 10 Resistance 6 Seat Position 9 Other cues for circular motion, activate hamstrings Gym Equipment Shuttle Recovery Unilateral Squats Resistance 50 Shuttle Recovery Platform Stable Reps/Time 10x2 Bilateral Squats Resistance 87 Shuttle Recovery Platform Stable Reps/Time 10x2 Therapeutic Exercises Supine Exercises IT band stretch Equipment Used yoga strap Reps/Minutes 2x30 Comments verbal and manual cues HS stretch Equipment Used yoga strap Reps/Minutes 2x30 Comments verbal and manual cues SLR Reps/Minutes 10x bridge Reps/Minutes 10x shani, 3x unil Prone Exercises quad stretch Equipment Used strap Reps/Minutes 2x30 Comments cues for parallel thighs, neutral rotation Sidelying Exercises hip abduction Reps/Minutes 10x Comments cues for alignment, core activation Sitting Exercises Hamstring curl Resistance L3 TB Reps/Minutes 10x Manual Therapy Treatment Taping kinesiotape Body Location right knee Treatment Focus patellar stab, pain relief Type of Tape kinesiotape Skin Inspection intact Comments 2 Y strips; 1)anchor tibial tuberosity , 50% stretch med and lateral patella straight up 2) achor suprapatellar, 50% stretch med and lateral patella straight down Self-Care/Home Management Treatment Education Patient Education Home Exercise Program,Pain Management Other Education updated HEP handout issued picture for aquatic exercises PT-OP-R Modalities Start: 08/22/21 17:51 Freq: Status: Active Protocol: Document 09/07/21 13:44 SAK (Rec: 09/07/21 14:35 [facility] [id number]) Hot Pack/Cold Pack Treatment Cold Pack Location right knee Patient Position Hooklying Treatment Duration (minutes) 10 Patient Tolerance Good PT-OP-T Assessment and Plan Start: 08/22/21 17:51 Freq: Status: Active Protocol: Document 09/07/21 13:44 SAK (Rec: 09/07/21 14:35 [facility] [id number]) Physical Therapy Assessment Impairments Impairments Activity Tolerance,Edema,Gait, Pain,Strength Goals Four Impairment no HEP Short Term Goal (STG) patient will be instrsucted in progressive HEP for purposes of rightknee strengthening and flexibility STG Duration 09/22/21 Correction Goal (LTG) Patient will be indepenent and compliant to HEP and demonstrate improved right knee strength of 5/5 to allow him to return to prior level of function LTG Duration 10/27/21 Three Impairment antalgic gait, step-to pattern on stairs Short Term Goal (STG) patient will be able to walk with least restrictive device with minimal to no limp STG Duration 09/22/21 Press Supervisor Goal (LTG) Patient will be able to ascend and descend stairs with alternating step pattern as evidence of improved strength and decreased pain right knee LTG Duration 10/27/21 Two Impairment pain right knee 5/10 on pain scale Correction Goal (LTG) Decrease right knee pain to no greater than 2/10 on pain scale to allow patient to return to taking walks One Impairment activity tolerance Impairment Lower extremity functional scale 48% Short Term Goal (STG) Improve LEFS score to at least 60% as measure of improved right knee function STG Duration 09/22/21 Press Supervisor Goal (LTG) Improve LEFS score to at least 75% as measure of improved right knee function LTG Duration 10/27/21 Progress Towards Goals Progress Towards Goals Progressing Toward Goals Assessment Summary Assessment Patient achieving good stretch with use of strap and has obtained yoga strap. Reporting less knee pain. Also wearing elastic knee brace, was receptive to trial kinesiotape, and was given extra strip kinesiotape to potentially try on own if helpful while on vacation next week. Good compliance to HEP with less limp noted with gait. Given exercise handout for aquatic exercises due to patient having access to pool on vacation. Physical Therapy Plan Frequency and Duration Frequency of Treatment 2x/Week Duration of Treatment 8 weeks Plan of Care Start Date 08/23/21 Plan of Care End Date 10/27/21 Therapeutic Interventions Therapeutic Interventions Aquatic Therapy,Gait Training, Home Exercise Program,Manual Therapy,Neuromuscular Re- education,Patient/Caregiver Education,Self-Care/Home Management,Soft Tissue Mobilization,Taping, Therapeutic Activities, Therapeutic Exercises Next Visit Focus/Plan Next Note Type Treatment Note Next Visit Plan Assess response to HEP progression and aquatic exercises. Ex bike or consider treadmill or elliptical if pain minimal. Work on functional squats/sit to stand possibly with elevated surfaces due to patient height. Continue strengthening with increased reps and resistance as tolerated. Shuttle balance.
--- NOTE | 2021-10-11 16:53 | PT.OTN ---
Current Diagnoses Pain in right knee (10/11/21) Pain in left knee (10/11/21) Difficulty in walking, not elsewhere classified (10/11/21) Weakness (10/11/21) Physical Therapy Treatment Note PT-OP-A Visit Information Start: 08/22/21 17:51 Freq: Status: Active Protocol: Document 10/11/21 14:31 SAK (Rec: 10/11/21 15:16 SAK [id number]) Out-Patient Physical Therapy Visit Information Visit Information Visit Type Treatment Note Visit Start Time 14:32 Visit Stop Time 15:33 Total Visit Minutes 61 Visit Number 4 Evaluation Information Evaluation Date 08/23/21 PT-OP-B Current Condition Start: 08/22/21 17:51 Freq: Status: Active Protocol: Document 10/11/21 14:31 SAK (Rec: 10/11/21 15:16 SAK [id number]) Current Condition History of Current Condition Onset Date 6 wks Current Complaints right knee pain History of Current Condition history of left knee pain starting in college after fall onto knee from counter height ; swelling, did therapy, wore a brace, stopped running a few years later after spraining ankle. 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 5-6 weeks ago onset of right knee pain, no known injury except prolonged driving. Broke right arm 2014, wore compression socks, swelled in left knee. Cortisone shot helpful left knee. 2 other episodes of left knee pain over past couple years resolved with ice and heat. Used heat last night. Has neoprene sleeve wears while walking. Prior Treatments and Tests no imaging. Treatment Goals Patient/Caregiver Goals decrease right knee pain, be able to return to prior level of activity PT-OP-C Subjective Start: 08/22/21 17:51 Freq: Status: Active Protocol: Document 10/11/21 14:31 SAK (Rec: 10/11/21 15:16 SAK [id number]) OP-PT Subjective Patient Comments Patient Comments Pain minimal, Doing exercises , feel some clunking/rubbing in knee especially with SAQ. Wasn't able to get in a pool and reports he used his aquatic exercise handout for scratch paper, forgetting that there is a pool in [place]. PT-OP-G Mobility & Gait Start: 08/22/21 17:51 Freq: Status: Active Protocol: Document 08/23/21 08:15 [facility] (Rec: 08/28/21 18:00 [facility] [id number]) OP Gait Assessment Gait Gait Assistance Required: Independent Distance (Feet) 50 Assistive Devices Assistive Device Straight Cane Gait Deviations General Gait Pattern Antalgic,Decreased Stride Length,Decreased Feet Clearance,Lateral Trunk Lean Factors Limiting Gait Function Factors Limiting Gait Function Decreased Strength,Pain Stair Climbing Evaluation Devices Stair Climbing Assistive Devices Left Railing,Right Railing Technique/Endurance Stair Climbing Direction Ascend and Descend Stair Climbing Technique Step to Step Number of Steps Climbed 4 PT-OP-H Neuro Start: 08/22/21 17:51 Freq: Status: Active Protocol: Document 08/23/21 08:15 [facility] (Rec: 08/28/21 18:00 [facility] [id number]) Sensation Evaluation Gross Sensation Gross Sensation WNL PT-OP-J Posture/Palpation/Skin Start: 08/22/21 17:51 Freq: Status: Active Protocol: Document 08/23/21 08:15 [facility] (Rec: 08/28/21 18:00 [facility] [id number]) Posture Evaluation Position Standing Head/C-Spine Posture Forward Head T-Spine Posture Increased Kyphosis Knee Posture (R) Genu Valgus,(R) Excess Flexion Ankle/Foot Posture (L) Pronated,(R) Pronated Skin Assessment Edema Assessment right knee Edema Type Non-Pitting Edema Degree 2+ Edema Appearance Puffy Subjective Edema Description Tightness Circumference Measurement knee Location left 46.4, right 48 calf Location left 46.5, right 45.8 ankle Location left 30.9 right 32.3 PT-OP-K Range of Motion Start: 08/22/21 17:51 Freq: Status: Active Protocol: Document 08/23/21 08:15 SAK (Rec: 08/28/21 18:00 [facility] [id number]) Hip Goniometric Range of Motion Hip Right Flexion w/Knee Flexed 95 Straight Leg Raise 45 Extension 0 Abduction 20 Internal Rotation 15 External Rotation 40 Left Flexion w/Knee Flexed 95 Straight Leg Raise 60 Extension 0 Abduction 20 Internal Rotation 15 External Rotation 40 Knee Goniometric Range of Motion Knee Right Flexion Active (degrees) 95 Flexion Passive (degrees) 98 Extension Active (degrees) 8 Extension Passive (degrees) 5 Left Knee ROM WFL Yes Knee ROM Limitations Knee ROM Limitations Pain,Swelling PT-OP-L Special Tests Start: 08/22/21 17:51 Freq: Status: Active Protocol: Document 08/23/21 08:15 [facility] (Rec: 08/28/21 18:00 [facility] [id number]) Special Tests Knee Special Tests Varus- 25 Degrees Test Results negative Valgus- 25 Degrees Test Results negative Juanjo Test Test Results negative Patellar Grind Test Test Results negative PT-OP-M Strength Start: 08/22/21 17:51 Freq: Status: Active Protocol: Document 08/23/21 08:15 [facility] (Rec: 08/28/21 18:00 [facility] [id number]) Hip Strength Hip Manual Muscle Testing Right Flexion (L2) 4 Good Extension (S1) 4- Good- External Rotation 3+ Fair+ Internal Rotation 3+ Fair+ Left Flexion (L2) 4 Good Extension (S1) 4- Good- External Rotation 4- Good- Internal Rotation 4- Good- Knee Strength Knee Manual Muscle Testing Right Flexion (S2) 4- Good- Extension (L3) 4- Good- Left Flexion (S2) 4+ Good+ Extension (L3) 4+ Good+ Ankle/Foot Strength Ankle and Foot Manual Muscle Testing Right Dorsiflexion (L4) 4+ Good+ Plantarflexion (S1) 4+ Good+ Left Dorsiflexion (L4) 4+ Good+ Plantarflexion (S1) 4+ Good+ PT-OP-Q Treatments Start: 08/22/21 17:51 Freq: Status: Active Protocol: Document 10/11/21 14:31 [facility] (Rec: 10/11/21 15:16 [facility] [id number]) Cardio Equipment Bicycle (Upright) Duration (Minutes) 10 Resistance 6 Seat Position 9 Other cues for circular motion, activate hamstrings Gym Equipment Shuttle Recovery Unilateral Squats Resistance 50 Shuttle Recovery Platform Stable Reps/Time 10x2 Bilateral Squats Resistance 87 Shuttle Recovery Platform Stable Reps/Time 10x2 Therapeutic Exercises Supine Exercises IT band stretch Comments HEP HS stretch Comments HEP SLR Comments HEP bridge Comments HEP Prone Exercises quad stretch Comments HEP Sidelying Exercises hip abduction Comments HEP Sitting Exercises Hamstring curl Comments HEP Standing Exercises resisted fwd/bck stepping Equipment Used red loop band Reps/Minutes 10 ft x 2 each direction lateral stepping Equipment Used red loop band Reps/Minutes 10 ft x 2 each direction sit to stand Equipment Used hi-low table elevated Reps/Minutes 12x Comments cues for slow, controlled movement, no UE's step-ups, step downs Equipment Used 4 stairs, 6 stairs, 6 box Comments cues for gluteal activation ascending, dec speed for eccentric control desc heel raises Reps/Minutes 10 Comments stair HC stretch Reps/Minutes 2x30 hamstring stretch Reps/Minutes 2x30 Comments stair Gait Training Gait Activity stairs Comments 4, 6, step-ups and down 6 box mirror Comments cues for dec compensation Manual Therapy Treatment Taping kinesiotape Body Location right knee Treatment Focus patellar stab, pain relief Type of Tape kinesiotape Skin Inspection intact Comments 2 Y strips; 1)anchor tibial tuberosity , 50% stretch med and lateral patella straight up 2) achor suprapatellar, 50% stretch med and lateral patella straight down Self-Care/Home Management Treatment Education Patient Education Home Exercise Program,Pain Management Other Education gluteal activation with gait excess bilateral foot pronation right greater than left with gait; shoes with more medial support, consider new orthotics updated written HEP PT-OP-R Modalities Start: 08/22/21 17:51 Freq: Status: Active Protocol: Document 10/11/21 14:31 [facility] (Rec: 10/11/21 15:16 [facility] [id number]) Hot Pack/Cold Pack Treatment Cold Pack Location right knee Patient Position Hooklying Treatment Duration (minutes) 10 Patient Tolerance Good PT-OP-T Assessment and Plan Start: 08/22/21 17:51 Freq: Status: Active Protocol: Document 10/11/21 14:31 [facility] (Rec: 10/11/21 15:16 [facility] [id number]) Physical Therapy Assessment Goals Four Impairment no HEP Short Term Goal (STG) patient will be instrsucted in progressive HEP for purposes of rightknee strengthening and flexibility 10/11/21: goal met STG Duration 09/22/21 Correction Goal (LTG) Patient will be indepenent and compliant to HEP and demonstrate improved right knee strength of 5/5 to allow him to return to prior level of function LTG Duration 10/27/21 Three Impairment antalgic gait, step-to pattern on stairs Short Term Goal (STG) patient will be able to walk with least restrictive device with minimal to no limp 10/11/21: no device, minimal limp. Able to to alternating step pattern ascending and descending but needs UE support, and descending is difficult with decreased control. STG Duration 09/22/21 Correction Goal (LTG) Patient will be able to ascend and descend stairs with alternating step pattern as evidence of improved strength and decreased pain right knee LTG Duration 10/27/21 Two Impairment pain right knee 5/10 on pain scale Correction Goal (LTG) Decrease right knee pain to no greater than 2/10 on pain scale to allow patient to return to taking walks One Impairment activity tolerance Impairment Lower extremity functional scale 48% Short Term Goal (STG) Improve LEFS score to at least 60% as measure of improved right knee function 10/11/21: good goal progress STG Duration 09/22/21 Correction Goal (LTG) Improve LEFS score to at least 75% as measure of improved right knee function LTG Duration 10/27/21 Progress Towards Goals Progress Towards Goals Progressing Toward Goals Assessment Summary Assessment Patient didn't get in the pool like he planned on when gone. Liked kinesiotape, tried himself but didn't feel like he did good job. Noted increased pronation in shoes wearing today, recommended shoe with increased medial support and/or consider new orthotics (has old custom orthotics). Progression of ther ex with resisted walking all directions, stair training , step-ups, downs with patient having difficulty controlling descent on stairs. Unable to transfer sit to stand without using momentum or hands; working on progression of decreasing surface height and slowed speed for improved muscular control. Overall good progress with decrease in pain, fair compliance to HEP, hasn't yet tried aquatic exercise as recommended. Physical Therapy Plan Frequency and Duration Frequency of Treatment 2x/Week Duration of Treatment 8 weeks Plan of Care Start Date 08/23/21 Plan of Care End Date 10/27/21 Therapeutic Interventions Therapeutic Interventions Aquatic Therapy,Gait Training, Home Exercise Program,Manual Therapy,Neuromuscular Re- education,Patient/Caregiver Education,Self-Care/Home Management,Soft Tissue Mobilization,Taping, Therapeutic Activities, Therapeutic Exercises Next Visit Focus/Plan Next Note Type Treatment Note Next Visit Plan Assess response to last treatment, progress ther ex as tolerated especially on stairs, eccentric quad control . Further patient education on self-taping.
--- NOTE | 2021-10-18 15:34 | PT.OTN ---
Current Diagnoses Pain in right knee (10/18/21) Pain in left knee (10/18/21) Difficulty in walking, not elsewhere classified (10/18/21) Weakness (10/18/21) Physical Therapy Treatment Note PT-OP-A Visit Information Start: 08/22/21 17:51 Freq: Status: Active Protocol: Document 10/18/21 14:34 [facility] (Rec: 10/18/21 15:14 [facility] [id number]) Out-Patient Physical Therapy Visit Information Visit Information Visit Type Treatment Note Visit Start Time 14:32 Visit Stop Time 15:33 Total Visit Minutes 61 Visit Number 5 Evaluation Information Evaluation Date 08/23/21 PT-OP-B Current Condition Start: 08/22/21 17:51 Freq: Status: Active Protocol: Document 10/18/21 14:34 [facility] (Rec: 10/18/21 15:14 [facility] [id number]) Current Condition History of Current Condition Onset Date 6 wks Current Complaints right knee pain History of Current Condition history of left knee pain starting in college after fall onto knee from counter height ; swelling, did therapy, wore a brace, stopped running a few years later after spraining ankle. 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 5-6 weeks ago onset of right knee pain, no known injury except prolonged driving. Broke right arm 2014, wore compression socks, swelled in left knee. Cortisone shot helpful left knee. 2 other episodes of left knee pain over past couple years resolved with ice and heat. Used heat last night. Has neoprene sleeve wears while walking. Prior Treatments and Tests no imaging. Treatment Goals Patient/Caregiver Goals decrease right knee pain, be able to return to prior level of activity PT-OP-C Subjective Start: 08/22/21 17:51 Freq: Status: Active Protocol: Document 10/18/21 14:34 [facility] (Rec: 10/18/21 15:14 [facility] [id number]) OP-PT Subjective Patient Comments Patient Comments knee still feels clunky, uncomfortable, but minimal pain. partial compliance to HEP. Hasn't used stair or box . Not sure kinesiotape helpful, doesn't feel the need . PT-OP-G Mobility & Gait Start: 08/22/21 17:51 Freq: Status: Active Protocol: Document 08/23/21 08:15 [facility] (Rec: 08/28/21 18:00 [facility] [id number]) OP Gait Assessment Gait Gait Assistance Required: Independent Distance (Feet) 50 Assistive Devices Assistive Device Straight Cane Gait Deviations General Gait Pattern Antalgic,Decreased Stride Length,Decreased Feet Clearance,Lateral Trunk Lean Factors Limiting Gait Function Factors Limiting Gait Function Decreased Strength,Pain Stair Climbing Evaluation Devices Stair Climbing Assistive Devices Left Railing,Right Railing Technique/Endurance Stair Climbing Direction Ascend and Descend Stair Climbing Technique Step to Step Number of Steps Climbed 4 PT-OP-H Neuro Start: 08/22/21 17:51 Freq: Status: Active Protocol: Document 08/23/21 08:15 [facility] (Rec: 08/28/21 18:00 [facility] [id number]) Sensation Evaluation Gross Sensation Gross Sensation WNL PT-OP-J Posture/Palpation/Skin Start: 08/22/21 17:51 Freq: Status: Active Protocol: Document 08/23/21 08:15 [facility] (Rec: 08/28/21 18:00 [facility] [id number]) Posture Evaluation Position Standing Head/C-Spine Posture Forward Head T-Spine Posture Increased Kyphosis Knee Posture (R) Genu Valgus,(R) Excess Flexion Ankle/Foot Posture (L) Pronated,(R) Pronated Skin Assessment Edema Assessment right knee Edema Type Non-Pitting Edema Degree 2+ Edema Appearance Puffy Subjective Edema Description Tightness Circumference Measurement knee Location left 46.4, right 48 calf Location left 46.5, right 45.8 ankle Location left 30.9 right 32.3 PT-OP-K Range of Motion Start: 08/22/21 17:51 Freq: Status: Active Protocol: Document 08/23/21 08:15 [facility] (Rec: 08/28/21 18:00 [facility] [id number]) Hip Goniometric Range of Motion Hip Right Flexion w/Knee Flexed 95 Straight Leg Raise 45 Extension 0 Abduction 20 Internal Rotation 15 External Rotation 40 Left Flexion w/Knee Flexed 95 Straight Leg Raise 60 Extension 0 Abduction 20 Internal Rotation 15 External Rotation 40 Knee Goniometric Range of Motion Knee Right Flexion Active (degrees) 95 Flexion Passive (degrees) 98 Extension Active (degrees) 8 Extension Passive (degrees) 5 Left Knee ROM WFL Yes Knee ROM Limitations Knee ROM Limitations Pain,Swelling PT-OP-L Special Tests Start: 08/22/21 17:51 Freq: Status: Active Protocol: Document 08/23/21 08:15 [facility] (Rec: 08/28/21 18:00 [facility] [id number]) Special Tests Knee Special Tests Varus- 25 Degrees Test Results negative Valgus- 25 Degrees Test Results negative Juanjo Test Test Results negative Patellar Grind Test Test Results negative PT-OP-M Strength Start: 08/22/21 17:51 Freq: Status: Active Protocol: Document 08/23/21 08:15 [facility] (Rec: 08/28/21 18:00 [facility] [id number]) Hip Strength Hip Manual Muscle Testing Right Flexion (L2) 4 Good Extension (S1) 4- Good- External Rotation 3+ Fair+ Internal Rotation 3+ Fair+ Left Flexion (L2) 4 Good Extension (S1) 4- Good- External Rotation 4- Good- Internal Rotation 4- Good- Knee Strength Knee Manual Muscle Testing Right Flexion (S2) 4- Good- Extension (L3) 4- Good- Left Flexion (S2) 4+ Good+ Extension (L3) 4+ Good+ Ankle/Foot Strength Ankle and Foot Manual Muscle Testing Right Dorsiflexion (L4) 4+ Good+ Plantarflexion (S1) 4+ Good+ Left Dorsiflexion (L4) 4+ Good+ Plantarflexion (S1) 4+ Good+ PT-OP-Q Treatments Start: 08/22/21 17:51 Freq: Status: Active Protocol: Document 10/18/21 14:34 [facility] (Rec: 10/18/21 15:14 [facility] [id number]) Cardio Equipment Bicycle (Upright) Duration (Minutes) 10 Resistance 6 Seat Position 9 Other cues for circular motion, activate hamstrings Gym Equipment Shuttle Recovery Unilateral Squats Resistance 50 Shuttle Recovery Platform Stable Reps/Time 10x2 Bilateral Squats Details with ball squeeze Resistance 87 Shuttle Recovery Platform Stable Reps/Time 10x2 Therapeutic Exercises Supine Exercises bridge Reps/Minutes 10x unil Prone Exercises quad stretch Reps/Minutes 2x30 Comments after sit to stand and mini- squats Sidelying Exercises hip abduction Equipment Used wall for tactile alignment cues, yoga mat on floor Reps/Minutes 10x ea Sitting Exercises minisquats Equipment Used elevated table behind Reps/Minutes 10x Comments works better for pt due to tendency to use momentum, and fall back as sits sit to stand Equipment Used elevated table Reps/Minutes 10x1 Standing Exercises resisted fwd/bck stepping Equipment Used red loop band Reps/Minutes 10 ft x 2 each direction lateral stepping Equipment Used red loop band Reps/Minutes 10 ft x 2 each direction Self-Care/Home Management Treatment Education Other Education gluteal activation with sit to stand, minisquats, bridge, gait PT-OP-R Modalities Start: 08/22/21 17:51 Freq: Status: Active Protocol: Document 10/18/21 14:34 [facility] (Rec: 10/18/21 15:14 [facility] [id number]) Hot Pack/Cold Pack Treatment Cold Pack Location right knee Patient Position Hooklying Treatment Duration (minutes) 10 Patient Tolerance Good PT-OP-T Assessment and Plan Start: 08/22/21 17:51 Freq: Status: Active Protocol: Document 10/18/21 14:34 [facility] (Rec: 10/18/21 15:14 [facility] [id number]) Physical Therapy Assessment Impairments Impairments Activity Tolerance,Edema,Gait, Pain,Strength Goals Four Impairment no HEP Short Term Goal (STG) patient will be instrsucted in progressive HEP for purposes of rightknee strengthening and flexibility 10/11/21: goal met STG Duration 09/22/21 Engineering Manager Goal (LTG) Patient will be indepenent and compliant to HEP and demonstrate improved right knee strength of 5/5 to allow him to return to prior level of function LTG Duration 10/27/21 Three Impairment antalgic gait, step-to pattern on stairs Short Term Goal (STG) patient will be able to walk with least restrictive device with minimal to no limp 10/11/21: no device, minimal limp. Able to to alternating step pattern ascending and descending but needs UE support, and descending is difficult with decreased control. STG Duration 09/22/21 Engineering Manager Goal (LTG) Patient will be able to ascend and descend stairs with alternating step pattern as evidence of improved strength and decreased pain right knee LTG Duration 10/27/21 Two Impairment pain right knee 5/10 on pain scale Long-Term Goal (LTG) Decrease right knee pain to no greater than 2/10 on pain scale to allow patient to return to taking walks One Impairment activity tolerance Impairment Lower extremity functional scale 48% Short Term Goal (STG) Improve LEFS score to at least 60% as measure of improved right knee function 10/11/21: good goal progress STG Duration 09/22/21 Engineering Manager Goal (LTG) Improve LEFS score to at least 75% as measure of improved right knee function LTG Duration 10/27/21 Progress Towards Goals Progress Towards Goals Progressing Toward Goals Assessment Summary Assessment Use of wall for alignment with s/l hip abduction helpful. Cont work on sit to stand, changed HEP to mini-squats due to improved control. No kinesiotape as not sure helpful. Encouraged to to step-ups and step-downs at home Physical Therapy Plan Frequency and Duration Frequency of Treatment 2x/Week Duration of Treatment 8 weeks Plan of Care Start Date 08/23/21 Plan of Care End Date 10/27/21 Therapeutic Interventions Therapeutic Interventions Aquatic Therapy,Gait Training, Home Exercise Program,Manual Therapy,Neuromuscular Re- education,Patient/Caregiver Education,Self-Care/Home Management,Soft Tissue Mobilization,Taping, Therapeutic Activities, Therapeutic Exercises Next Visit Focus/Plan Next Note Type Re-Evaluation Next Visit Plan Re-assess ROM and strength right knee, gait, LEFS, pain chart. Continue progressive ther ex as tolerated.
--- NOTE | 2021-10-25 15:41 | PT.OTRE ---
Current Diagnoses Pain in right knee (10/25/21) Pain in left knee (10/25/21) Difficulty in walking, not elsewhere classified (10/25/21) Weakness (10/25/21) Past Medical History (Last Reviewed 09/26/21 @ 15:07 by Kash Dorsey MD) Chicken pox (~1978) Erectile dysfunction Fractures (~2014) Melanoma Obstructive sleep apnea Prediabetes Skin cancer Visit Care Team Role Provider Type Pj Noyola MD Attending Provider Physician Family Provider Primary Care Provider Referring Provider Specialty: Family Practice Address: [address] [place] [address] Email: [email or web address] Physical Therapy Re-Evaluation PT-OP-A Visit Information Start: 08/22/21 17:51 Freq: Status: Active Protocol: Document 10/25/21 14:31 SAK (Rec: 10/25/21 15:36 SAK [id number]) Out-Patient Physical Therapy Visit Information Visit Information Visit Type Treatment Note Visit Start Time 14:32 Visit Stop Time 15:33 Total Visit Minutes 55 Visit Number 6 Evaluation Information Evaluation Date 08/23/21 PT-OP-B Current Condition Start: 08/22/21 17:51 Freq: Status: Active Protocol: Document 10/25/21 14:31 SAK (Rec: 10/25/21 15:36 SAK [id number]) Current Condition History of Current Condition Onset Date 6 wks Current Complaints right knee pain History of Current Condition history of left knee pain starting in college after fall onto knee from counter height ; swelling, did therapy, wore a brace, stopped running a few years later after spraining ankle. 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 5-6 weeks ago onset of right knee pain, no known injury except prolonged driving. Broke right arm 2014, wore compression socks, swelled in left knee. Cortisone shot helpful left knee. 2 other episodes of left knee pain over past couple years resolved with ice and heat. Used heat last night. Has neoprene sleeve wears while walking. Prior Treatments and Tests no imaging. Treatment Goals Patient/Caregiver Goals decrease right knee pain, be able to return to prior level of activity PT-OP-C Subjective Start: 08/22/21 17:51 Freq: Status: Active Protocol: Document 10/25/21 14:31 SAK (Rec: 10/25/21 15:36 [facility] [id number]) OP-PT Subjective Patient Comments Patient Comments Went to [employer] on Saturday, wore brace, by Saturday knee sore, Saturday iced before work. Today feels ok. Trying to work on stretching and hamstring strengthening at work in his chair. Pain sometimes better, sometimes not. Wose with prolonged sitting. Wants to try tape again. PT-OP-G Mobility & Gait Start: 08/22/21 17:51 Freq: Status: Active Protocol: Document 08/23/21 08:15 [facility] (Rec: 08/28/21 18:00 [facility] [id number]) OP Gait Assessment Gait Gait Assistance Required: Independent Distance (Feet) 50 Assistive Devices Assistive Device Straight Cane Gait Deviations General Gait Pattern Antalgic,Decreased Stride Length,Decreased Feet Clearance,Lateral Trunk Lean Factors Limiting Gait Function Factors Limiting Gait Function Decreased Strength,Pain Stair Climbing Evaluation Devices Stair Climbing Assistive Devices Left Railing,Right Railing Technique/Endurance Stair Climbing Direction Ascend and Descend Stair Climbing Technique Step to Step Number of Steps Climbed 4 PT-OP-H Neuro Start: 08/22/21 17:51 Freq: Status: Active Protocol: Document 08/23/21 08:15 SAK (Rec: 08/28/21 18:00 [facility] [id number]) Sensation Evaluation Gross Sensation Gross Sensation WNL PT-OP-J Posture/Palpation/Skin Start: 08/22/21 17:51 Freq: Status: Active Protocol: Document 08/23/21 08:15 [facility] (Rec: 08/28/21 18:00 [facility] [id number]) Posture Evaluation Position Standing Head/C-Spine Posture Forward Head T-Spine Posture Increased Kyphosis Knee Posture (R) Genu Valgus,(R) Excess Flexion Ankle/Foot Posture (L) Pronated,(R) Pronated Skin Assessment Edema Assessment right knee Edema Type Non-Pitting Edema Degree 2+ Edema Appearance Puffy Subjective Edema Description Tightness Circumference Measurement knee Location left 46.4, right 48 calf Location left 46.5, right 45.8 ankle Location left 30.9 right 32.3 PT-OP-K Range of Motion Start: 08/22/21 17:51 Freq: Status: Active Protocol: Document 08/23/21 08:15 SAK (Rec: 08/28/21 18:00 SAK [id number]) Hip Goniometric Range of Motion Hip Measured in Degrees Right Flexion w/Knee Flexed 95 Straight Leg Raise 45 Extension 0 Abduction 20 Internal Rotation 15 External Rotation 40 Left Flexion w/Knee Flexed 95 Straight Leg Raise 60 Extension 0 Abduction 20 Internal Rotation 15 External Rotation 40 Knee Goniometric Range of Motion Knee Measured in Degrees Right Flexion Active (degrees) 95 Flexion Passive (degrees) 98 Extension Active (degrees) 8 Extension Passive (degrees) 5 Left Knee ROM WFL Yes Knee ROM Limitations Knee ROM Limitations Pain,Swelling PT-OP-L Special Tests Start: 08/22/21 17:51 Freq: Status: Active Protocol: Document 08/23/21 08:15 [facility] (Rec: 08/28/21 18:00 [facility] [id number]) Special Tests Knee Special Tests Varus- 25 Degrees Test Results negative Valgus- 25 Degrees Test Results negative Juanjo Test Test Results negative Patellar Grind Test Test Results negative PT-OP-M Strength Start: 08/22/21 17:51 Freq: Status: Active Protocol: Document 08/23/21 08:15 [facility] (Rec: 08/28/21 18:00 [facility] [id number]) Hip Strength Hip Manual Muscle Testing Right Flexion (L2) 4 Good Extension (S1) 4- Good- External Rotation 3+ Fair+ Internal Rotation 3+ Fair+ Left Flexion (L2) 4 Good Extension (S1) 4- Good- External Rotation 4- Good- Internal Rotation 4- Good- Knee Strength Knee Manual Muscle Testing Right Flexion (S2) 4- Good- Extension (L3) 4- Good- Left Flexion (S2) 4+ Good+ Extension (L3) 4+ Good+ Ankle/Foot Strength Ankle and Foot Manual Muscle Testing Right Dorsiflexion (L4) 4+ Good+ Plantarflexion (S1) 4+ Good+ Left Dorsiflexion (L4) 4+ Good+ Plantarflexion (S1) 4+ Good+ PT-OP-Q Treatments Start: 08/22/21 17:51 Freq: Status: Active Protocol: Document 10/25/21 14:31 SAK (Rec: 10/25/21 15:36 [facility] [id number]) Cardio Equipment Bicycle (Upright) Duration (Minutes) 10 Resistance 6 Seat Position 9 Other cues for circular motion, activate hamstrings Gym Equipment Shuttle Recovery Unilateral Squats Resistance 50 Shuttle Recovery Platform Stable Reps/Time 10x2 Bilateral Squats Details with ball squeeze Resistance 87 Shuttle Recovery Platform Stable Reps/Time 10x2 Shuttle Balance red clips Details bal and weight shift f/b, side Manual Therapy Treatment Taping kinesiotape Body Location right knee Treatment Focus patellar stab, pain relief Type of Tape kinesiotape Skin Inspection intact Comments 2 Y strips; 1)anchor tibial tuberosity , 50% stretch med and lateral patella straight up 2) achor suprapatellar, 50% stretch med and lateral patella straight down Self-Care/Home Management Treatment Education Patient Education Home Exercise Program,Pain Management PT-OP-R Modalities Start: 08/22/21 17:51 Freq: Status: Active Protocol: Document 10/25/21 14:31 [facility] (Rec: 10/25/21 15:37 [facility] [id number]) Hot Pack/Cold Pack Treatment Cold Pack Location right knee Patient Position Hooklying Treatment Duration (minutes) 10 Patient Tolerance Good PT-OP-T Assessment and Plan Start: 08/22/21 17:51 Freq: Status: Active Protocol: Document 10/25/21 14:31 [facility] (Rec: 10/25/21 15:36 [facility] [id number]) Physical Therapy Assessment Goals Four Impairment no HEP Short Term Goal (STG) patient will be instrsucted in progressive HEP for purposes of rightknee strengthening and flexibility 10/11/21: goal met STG Duration goal met [facility] Goal (LTG) Patient will be indepenent and compliant to HEP and demonstrate improved right knee strength of 5/5 to allow him to return to prior level of function 10/25/21: continued progression of ther ex, knee strength 4+/ 5 but with c/o pain with resistance LTG Duration 12/09/21 Three Impairment antalgic gait, step-to pattern on stairs Short Term Goal (STG) patient will be able to walk with least restrictive device with minimal to no limp 10/11/21: no device, minimal limp. Able to do alternating step pattern ascending and descending but needs UE support, and descending is difficult with decreased control. 10/25/21: decreased eccentric control right LE with descending stairs, requires at least 1 railing for support STG Duration 09/22/21 Manager Office Goal (LTG) Patient will be able to ascend and descend stairs with alternating step pattern with good control without UE support as evidence of improved strength and decreased pain right knee LTG Duration 12/09/21 Two Impairment pain right knee 5/10 on pain scale Manager Office Goal (LTG) Decrease right knee pain to no greater than 2/10 on pain scale to allow patient to return to taking walks 10/25/21: Some progress, not as much time at higher pain levels but reporting occasional 7/10 pain LTG Duration 12/09/21 One Impairment activity tolerance Impairment Lower extremity functional scale 48% Short Term Goal (STG) Improve LEFS score to at least 60% as measure of improved right knee function 10/11/21: good goal progress 10/25/21: improved to 68% STG Duration goal met [facility] Goal (LTG) Improve LEFS score to at least 75% as measure of improved right knee function LTG Duration 12/09/21 Progress Towards Goals Progress Towards Goals Progressing Toward Goals Assessment Summary Assessment Patient making improvement with progression of ther ex, improving functional strength though eccentric control with descending stairs still challenging. Lower extremity functional scale score improved from 48 to 68%. Pain variable, increases with prolonged time on feet. Tolerating progression of ther ex well. Mod cues for LE alignment and muscle activation sequencing for improved function and decreased pain. Have discussed shoes with PT recommended shoe with wider toe box and improved arch support. Recommend further PT to help him fully achieve the above goals. Physical Therapy Plan Frequency and Duration Frequency of Treatment 2x/Week Duration of Treatment 6 weeks Plan of Care Start Date 10/25/21 Plan of Care End Date 12/09/21 Therapeutic Interventions Therapeutic Interventions Aquatic Therapy,Gait Training, Home Exercise Program,Manual Therapy,Neuromuscular Re- education,Patient/Caregiver Education,Self-Care/Home Management,Soft Tissue Mobilization,Taping, Therapeutic Activities, Therapeutic Exercises Next Visit Focus/Plan Next Note Type Treatment Note Next Visit Plan evaluate response to KT tape, consider alternative method if not helpful. Review s/l hip adduction added today to HEP. Work on sit to stand from progressively lower height table. Consider soft tissue mobilization of IT band, quads with rolling pin/massage wand .
--- NOTE | 2021-10-25 15:41 | PT.OPPOC ---
Physical, Occupational & Speech Therapy At [facility] Current Diagnoses Pain in right knee (10/25/21) Pain in left knee (10/25/21) Difficulty in walking, not elsewhere classified (10/25/21) Weakness (10/25/21) Visit Care Team Role Provider Type jP Noyola MD Attending Provider Physician Family Provider Primary Care Provider Referring Provider Specialty: Family Practice Address: [address] [place] [address], [facility] Email: [email or web address] Plan Of Care PT-OP-T Assessment and Plan Start: 08/22/21 17:51 Freq: Status: Active Protocol: Document 10/25/21 14:31 SAK (Rec: 10/25/21 15:36 SAK [id number]) Physical Therapy Assessment Goals Four Impairment no HEP Short Term Goal (STG) patient will be instrsucted in progressive HEP for purposes of rightknee strengthening and flexibility 10/11/21: goal met STG Duration goal met [facility] Goal (LTG) Patient will be indepenent and compliant to HEP and demonstrate improved right knee strength of 5/5 to allow him to return to prior level of function 10/25/21: continued progression of ther ex, knee strength 4+/ 5 but with c/o pain with resistance LTG Duration 12/09/21 Three Impairment antalgic gait, step-to pattern on stairs Short Term Goal (STG) patient will be able to walk with least restrictive device with minimal to no limp 10/11/21: no device, minimal limp. Able to do alternating step pattern ascending and descending but needs UE support, and descending is difficult with decreased control. 10/25/21: decreased eccentric control right LE with descending stairs, requires at least 1 railing for support STG Duration 09/22/21 [facility] Goal (LTG) Patient will be able to ascend and descend stairs with alternating step pattern with good control without UE support as evidence of improved strength and decreased pain right knee LTG Duration 12/09/21 Two Impairment pain right knee 5/10 on pain scale Negotiations Director Goal (LTG) Decrease right knee pain to no greater than 2/10 on pain scale to allow patient to return to taking walks 10/25/21: Some progress, not as much time at higher pain levels but reporting occasional 7/10 pain LTG Duration 12/09/21 One Impairment activity tolerance Impairment Lower extremity functional scale 48% Short Term Goal (STG) Improve LEFS score to at least 60% as measure of improved right knee function 10/11/21: good goal progress 10/25/21: improved to 68% STG Duration goal met [facility] Goal (LTG) Improve LEFS score to at least 75% as measure of improved right knee function LTG Duration 12/09/21 Progress Towards Goals Progress Towards Goals Progressing Toward Goals Assessment Summary Assessment Patient making improvement with progression of ther ex, improving functional strength though eccentric control with descending stairs still challenging. Lower extremity functional scale score improved from 48 to 68%. Pain variable, increases with prolonged time on feet. Tolerating progression of ther ex well. Mod cues for LE alignment and muscle activation sequencing for improved function and decreased pain. Have discussed shoes with PT recommended shoe with wider toe box and improved arch support. Recommend further PT to help him fully achieve the above goals. Physical Therapy Plan Frequency and Duration Frequency of Treatment 2x/Week Duration of Treatment 6 weeks Plan of Care Start Date 10/25/21 Plan of Care End Date 12/09/21 Therapeutic Interventions Therapeutic Interventions Aquatic Therapy,Gait Training, Home Exercise Program,Manual Therapy,Neuromuscular Re- education,Patient/Caregiver Education,Self-Care/Home Management,Soft Tissue Mobilization,Taping, Therapeutic Activities, Therapeutic Exercises Next Visit Focus/Plan Next Note Type Treatment Note Next Visit Plan evaluate response to KT tape, consider alternative method if not helpful. Review s/l hip adduction added today to HEP. Work on sit to stand from progressively lower height table. Consider soft tissue mobilization of IT band, quads with rolling pin/massage wand . Plan of Care Dates Plan of Care Start Date 10/25/21 Plan of Care End Date 12/09/21 Electronically Signed by: Reema Long, PT 10/25/21 [id number] If you are in agreement with this Plan of Care, please return a signed and dated copy. I have reviewed this Plan of Care and certify that the skilled therapy services above are required to meet the patient?s needs. Physician Signature Date Printed Name and Credentials Clinical Instructor Signature Printed Name and Credentials
--- NOTE | 2021-11-08 17:11 | PT.OTN ---
Current Diagnoses Pain in right knee (11/08/21) Pain in left knee (11/08/21) Difficulty in walking, not elsewhere classified (11/08/21) Weakness (11/08/21) Physical Therapy Treatment Note PT-OP-A Visit Information Start: 08/22/21 17:51 Freq: Status: Active Protocol: Document 11/08/21 12:49 AW (Rec: 11/08/21 15:21 AW [id number]) Out-Patient Physical Therapy Visit Information Visit Information Visit Type Treatment Note Visit Start Time 14:33 Visit Stop Time 15:25 Total Visit Minutes 52 Visit Number 7 Number of DERMATOLOGY NURSE PRACTITIONER Visits 0 Evaluation Information Evaluation Date 08/23/21 PT-OP-B Current Condition Start: 08/22/21 17:51 Freq: Status: Active Protocol: Document 10/25/21 14:31 SAK (Rec: 10/25/21 15:36 SAK [id number]) Current Condition History of Current Condition Onset Date 6 wks Current Complaints right knee pain History of Current Condition history of left knee pain starting in college after fall onto knee from counter height ; swelling, did therapy, wore a brace, stopped running a few years later after spraining ankle. 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 5-6 weeks ago onset of right knee pain, no known injury except prolonged driving. Broke right arm 2014, wore compression socks, swelled in left knee. Cortisone shot helpful left knee. 2 other episodes of left knee pain over past couple years resolved with ice and heat. Used heat last night. Has neoprene sleeve wears while walking. Prior Treatments and Tests no imaging. Treatment Goals Patient/Caregiver Goals decrease right knee pain, be able to return to prior level of activity PT-OP-C Subjective Start: 08/22/21 17:51 Freq: Status: Active Protocol: Document 11/08/21 12:49 AW (Rec: 11/08/21 15:21 AW [id number]) OP-PT Subjective Patient Comments Patient Comments Has been doing exercises about every other day. Symptoms come and go without much pattern except for soreness after long periods of inactivity. PT-OP-G Mobility & Gait Start: 08/22/21 17:51 Freq: Status: Active Protocol: Document 08/23/21 08:15 [facility] (Rec: 08/28/21 18:00 [facility] [id number]) OP Gait Assessment Gait Gait Assistance Required: Independent Distance (Feet) 50 Assistive Devices Assistive Device Straight Cane Gait Deviations General Gait Pattern Antalgic,Decreased Stride Length,Decreased Feet Clearance,Lateral Trunk Lean Factors Limiting Gait Function Factors Limiting Gait Function Decreased Strength,Pain Stair Climbing Evaluation Devices Stair Climbing Assistive Devices Left Railing,Right Railing Technique/Endurance Stair Climbing Direction Ascend and Descend Stair Climbing Technique Step to Step Number of Steps Climbed 4 PT-OP-H Neuro Start: 08/22/21 17:51 Freq: Status: Active Protocol: Document 08/23/21 08:15 [facility] (Rec: 08/28/21 18:00 [facility] [id number]) Sensation Evaluation Gross Sensation Gross Sensation WNL PT-OP-J Posture/Palpation/Skin Start: 08/22/21 17:51 Freq: Status: Active Protocol: Document 08/23/21 08:15 [facility] (Rec: 08/28/21 18:00 [facility] [id number]) Posture Evaluation Position Standing Head/C-Spine Posture Forward Head T-Spine Posture Increased Kyphosis Knee Posture (R) Genu Valgus,(R) Excess Flexion Ankle/Foot Posture (L) Pronated,(R) Pronated Skin Assessment Edema Assessment right knee Edema Type Non-Pitting Edema Degree 2+ Edema Appearance Puffy Subjective Edema Description Tightness Circumference Measurement knee Location left 46.4, right 48 calf Location left 46.5, right 45.8 ankle Location left 30.9 right 32.3 PT-OP-K Range of Motion Start: 08/22/21 17:51 Freq: Status: Active Protocol: Document 08/23/21 08:15 [facility] (Rec: 08/28/21 18:00 [facility] [id number]) Hip Goniometric Range of Motion Hip Right Flexion w/Knee Flexed 95 Straight Leg Raise 45 Extension 0 Abduction 20 Internal Rotation 15 External Rotation 40 Left Flexion w/Knee Flexed 95 Straight Leg Raise 60 Extension 0 Abduction 20 Internal Rotation 15 External Rotation 40 Knee Goniometric Range of Motion Knee Right Flexion Active (degrees) 95 Flexion Passive (degrees) 98 Extension Active (degrees) 8 Extension Passive (degrees) 5 Left Knee ROM WFL Yes Knee ROM Limitations Knee ROM Limitations Pain,Swelling PT-OP-L Special Tests Start: 08/22/21 17:51 Freq: Status: Active Protocol: Document 08/23/21 08:15 SAK (Rec: 08/28/21 18:00 SAK [id number]) Special Tests Knee Special Tests Varus- 25 Degrees Test Results negative Valgus- 25 Degrees Test Results negative Juanjo Test Test Results negative Patellar Grind Test Test Results negative PT-OP-M Strength Start: 08/22/21 17:51 Freq: Status: Active Protocol: Document 08/23/21 08:15 SAK (Rec: 08/28/21 18:00 SAK [id number]) Hip Strength Hip Manual Muscle Testing Right Flexion (L2) 4 Good Extension (S1) 4- Good- External Rotation 3+ Fair+ Internal Rotation 3+ Fair+ Left Flexion (L2) 4 Good Extension (S1) 4- Good- External Rotation 4- Good- Internal Rotation 4- Good- Knee Strength Knee Manual Muscle Testing Right Flexion (S2) 4- Good- Extension (L3) 4- Good- Left Flexion (S2) 4+ Good+ Extension (L3) 4+ Good+ Ankle/Foot Strength Ankle and Foot Manual Muscle Testing Right Dorsiflexion (L4) 4+ Good+ Plantarflexion (S1) 4+ Good+ Left Dorsiflexion (L4) 4+ Good+ Plantarflexion (S1) 4+ Good+ PT-OP-Q Treatments Start: 08/22/21 17:51 Freq: Status: Active Protocol: Document 11/08/21 12:49 AW (Rec: 11/08/21 15:21 AW [id number]) Cardio Equipment Bicycle (Upright) Duration (Minutes) 10 Resistance 8 Seat Position 9 Other cues for circular motion, activate/pull with hamstrings Therapeutic Exercises Supine Exercises bridge Reps/Minutes 10x unil Sidelying Exercises hip adduction Sidelying Exercise Name hip adduction hip abduction Equipment Used wall for tactile alignment cues, yoga mat on floor Reps/Minutes 10x ea Sitting Exercises LAQ Sitting Exercise Name LAQ Side right Reps/Minutes 10 SH x 10 Comments HEP sit to stand Equipment Used elevated table - 21, 20 Reps/Minutes 8x4 Comments cued hip hinge, glute drive Standing Exercises step-ups, step downs Standing Exercise Name step/tap down Equipment Used 4 stairs, 6 stairs with rail Comments cues for knee aligned with foot; HEP heel raises Reps/Minutes 10 Comments stair Manual Therapy Treatment Taping kinesiotape Body Location right knee Treatment Focus patellar stab, pain relief Type of Tape kinesiotape Skin Inspection intact Comments 2 Y strips; 1)anchor tibial tuberosity , 50% stretch med and lateral patella straight up 2) achor suprapatellar, 50% stretch med and lateral patella straight down PT-OP-R Modalities Start: 08/22/21 17:51 Freq: Status: Active Protocol: Document 11/08/21 12:49 AW (Rec: 11/08/21 15:21 AW [id number]) Hot Pack/Cold Pack Treatment Cold Pack Location B knees Patient Position Hooklying Treatment Duration (minutes) 10 Patient Tolerance Good PT-OP-T Assessment and Plan Start: 08/22/21 17:51 Freq: Status: Active Protocol: Document 11/08/21 12:49 AW (Rec: 11/08/21 15:21 AW [id number]) Physical Therapy Assessment Goals Four Impairment no HEP Short Term Goal (STG) patient will be instrsucted in progressive HEP for purposes of rightknee strengthening and flexibility 10/11/21: goal met STG Duration goal met Senior Reliability Engineer Goal (LTG) Patient will be indepenent and compliant to HEP and demonstrate improved right knee strength of 5/5 to allow him to return to prior level of function 10/25/21: continued progression of ther ex, knee strength 4+/ 5 but with c/o pain with resistance LTG Duration 12/09/21 Three Impairment antalgic gait, step-to pattern on stairs Short Term Goal (STG) patient will be able to walk with least restrictive device with minimal to no limp 10/11/21: no device, minimal limp. Able to do alternating step pattern ascending and descending but needs UE support, and descending is difficult with decreased control. 10/25/21: decreased eccentric control right LE with descending stairs, requires at least 1 railing for support STG Duration 09/22/21 Nursing Home Goal (LTG) Patient will be able to ascend and descend stairs with alternating step pattern with good control without UE support as evidence of improved strength and decreased pain right knee LTG Duration 12/09/21 Two Impairment pain right knee 5/10 on pain scale Nursing Home Goal (LTG) Decrease right knee pain to no greater than 2/10 on pain scale to allow patient to return to taking walks 10/25/21: Some progress, not as much time at higher pain levels but reporting occasional 7/10 pain LTG Duration 12/09/21 One Impairment activity tolerance Impairment Lower extremity functional scale 48% Short Term Goal (STG) Improve LEFS score to at least 60% as measure of improved right knee function 10/11/21: good goal progress 10/25/21: improved to 68% STG Duration goal met Senior Reliability Engineer Goal (LTG) Improve LEFS score to at least 75% as measure of improved right knee function LTG Duration 12/09/21 Assessment Summary Assessment Stand to sit remains challenging due to poor eccentric control. Revisited step/tap downs to address this strength deficit today. Pt benefitted from cues for knee aligned with foot. Added LAQ and step/tap down with rail support for HEP and provided handout. Physical Therapy Plan Frequency and Duration Frequency of Treatment 2x/Week Duration of Treatment 6 weeks Plan of Care Start Date 10/25/21 Plan of Care End Date 12/09/21 Therapeutic Interventions Therapeutic Interventions Aquatic Therapy,Gait Training, Home Exercise Program,Manual Therapy,Neuromuscular Re- education,Patient/Caregiver Education,Self-Care/Home Management,Soft Tissue Mobilization,Taping, Therapeutic Activities, Therapeutic Exercises Next Visit Focus/Plan Next Note Type Treatment Note Next Visit Plan evaluate response to KT tape, Review step down and LAQ added to HEP. Work on sit to stand from progressively lower height table. Consider soft tissue mobilization of IT band , quads with rolling pin/ massage wand.
--- NOTE | 2021-11-15 15:25 | PT.OTN ---
Current Diagnoses Pain in right knee (11/15/21) Pain in left knee (11/15/21) Difficulty in walking, not elsewhere classified (11/15/21) Weakness (11/15/21) Physical Therapy Treatment Note PT-OP-A Visit Information Start: 08/22/21 17:51 Freq: Status: Active Protocol: Document 11/15/21 14:38 SP (Rec: 11/15/21 16:05 SP [id number]) Out-Patient Physical Therapy Visit Information Visit Information Visit Type Treatment Note Visit Start Time 14:38 Visit Stop Time 15:25 Total Visit Minutes 47 Visit Number 8 Number of MARINE EQUIPMENT TEST ENGINEER Visits 1 Evaluation Information Evaluation Date 08/23/21 PT-OP-B Current Condition Start: 08/22/21 17:51 Freq: Status: Active Protocol: Document 10/25/21 14:31 SAK (Rec: 10/25/21 15:36 SAK [id number]) Current Condition History of Current Condition Onset Date 6 wks Current Complaints right knee pain History of Current Condition history of left knee pain starting in college after fall onto knee from counter height ; swelling, did therapy, wore a brace, stopped running a few years later after spraining ankle. 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 5-6 weeks ago onset of right knee pain, no known injury except prolonged driving. Broke right arm 2014, wore compression socks, swelled in left knee. Cortisone shot helpful left knee. 2 other episodes of left knee pain over past couple years resolved with ice and heat. Used heat last night. Has neoprene sleeve wears while walking. Prior Treatments and Tests no imaging. Treatment Goals Patient/Caregiver Goals decrease right knee pain, be able to return to prior level of activity PT-OP-C Subjective Start: 08/22/21 17:51 Freq: Status: Active Protocol: Document 11/15/21 14:38 SP (Rec: 11/15/21 16:05 SP [id number]) OP-PT Subjective Patient Comments Patient Comments Pt reports no adverse affects with HEP, has alot and takes a while, wondering if need to all. Doesn't seen significant improvements in achy pain in R knee, feels painful grind when sitting at times but most frustrating is still a limp and stiff if sit/stand to long . Kinesiotaping helps support his R knee. He wanted to know when to wear brace on R knee. PT-OP-G Mobility & Gait Start: 08/22/21 17:51 Freq: Status: Active Protocol: Document 08/23/21 08:15 [facility] (Rec: 08/28/21 18:00 [facility] [id number]) OP Gait Assessment Gait Gait Assistance Required: Independent Distance (Feet) 50 Assistive Devices Assistive Device Straight Cane Gait Deviations General Gait Pattern Antalgic,Decreased Stride Length,Decreased Feet Clearance,Lateral Trunk Lean Factors Limiting Gait Function Factors Limiting Gait Function Decreased Strength,Pain Stair Climbing Evaluation Devices Stair Climbing Assistive Devices Left Railing,Right Railing Technique/Endurance Stair Climbing Direction Ascend and Descend Stair Climbing Technique Step to Step Number of Steps Climbed 4 PT-OP-H Neuro Start: 08/22/21 17:51 Freq: Status: Active Protocol: Document 08/23/21 08:15 [facility] (Rec: 08/28/21 18:00 [facility] [id number]) Sensation Evaluation Gross Sensation Gross Sensation WNL PT-OP-J Posture/Palpation/Skin Start: 08/22/21 17:51 Freq: Status: Active Protocol: Document 08/23/21 08:15 [facility] (Rec: 08/28/21 18:00 [facility] [id number]) Posture Evaluation Position Standing Head/C-Spine Posture Forward Head T-Spine Posture Increased Kyphosis Knee Posture (R) Genu Valgus,(R) Excess Flexion Ankle/Foot Posture (L) Pronated,(R) Pronated Skin Assessment Edema Assessment right knee Edema Type Non-Pitting Edema Degree 2+ Edema Appearance Puffy Subjective Edema Description Tightness Circumference Measurement knee Location left 46.4, right 48 calf Location left 46.5, right 45.8 ankle Location left 30.9 right 32.3 PT-OP-K Range of Motion Start: 08/22/21 17:51 Freq: Status: Active Protocol: Document 08/23/21 08:15 [facility] (Rec: 08/28/21 18:00 [facility] [id number]) Hip Goniometric Range of Motion Hip Right Flexion w/Knee Flexed 95 Straight Leg Raise 45 Extension 0 Abduction 20 Internal Rotation 15 External Rotation 40 Left Flexion w/Knee Flexed 95 Straight Leg Raise 60 Extension 0 Abduction 20 Internal Rotation 15 External Rotation 40 Knee Goniometric Range of Motion Knee Right Flexion Active (degrees) 95 Flexion Passive (degrees) 98 Extension Active (degrees) 8 Extension Passive (degrees) 5 Left Knee ROM WFL Yes Knee ROM Limitations Knee ROM Limitations Pain,Swelling PT-OP-L Special Tests Start: 08/22/21 17:51 Freq: Status: Active Protocol: Document 08/23/21 08:15 [facility] (Rec: 08/28/21 18:00 [facility] [id number]) Special Tests Knee Special Tests Varus- 25 Degrees Test Results negative Valgus- 25 Degrees Test Results negative Juanjo Test Test Results negative Patellar Grind Test Test Results negative PT-OP-M Strength Start: 08/22/21 17:51 Freq: Status: Active Protocol: Document 08/23/21 08:15 [facility] (Rec: 08/28/21 18:00 [facility] [id number]) Hip Strength Hip Manual Muscle Testing Right Flexion (L2) 4 Good Extension (S1) 4- Good- External Rotation 3+ Fair+ Internal Rotation 3+ Fair+ Left Flexion (L2) 4 Good Extension (S1) 4- Good- External Rotation 4- Good- Internal Rotation 4- Good- Knee Strength Knee Manual Muscle Testing Right Flexion (S2) 4- Good- Extension (L3) 4- Good- Left Flexion (S2) 4+ Good+ Extension (L3) 4+ Good+ Ankle/Foot Strength Ankle and Foot Manual Muscle Testing Right Dorsiflexion (L4) 4+ Good+ Plantarflexion (S1) 4+ Good+ Left Dorsiflexion (L4) 4+ Good+ Plantarflexion (S1) 4+ Good+ PT-OP-Q Treatments Start: 08/22/21 17:51 Freq: Status: Active Protocol: Document 11/15/21 14:38 SP (Rec: 11/15/21 16:05 SP [id number]) Cardio Equipment Bicycle (Upright) Duration (Minutes) 10 Resistance 8 Seat Position 9 Other cues for circular motion, activate/pull with hamstrings Therapeutic Exercises Sitting Exercises self STMs Sitting Exercise Name added for work/home: quad, HS, calf, ITB, adductors Side right Resistance B outside PT Equipment Used has hand held wooden roller Reps/Minutes 3 min Comments good feedback response minisquats Sitting Exercise Name discussed, performs and states the most tiring but not painful Reps/Minutes 10x Comments works better for pt due to tendency to use momentum, and fall back as sits sit to stand Sitting Exercise Name arms forward as needed Equipment Used mesh chair + blue foam cushion Reps/Minutes 5 reps x2 Comments cued hip hinge and knee flexion to sit, glute drive ascend- little flop 1 Standing Exercises calf stretch Standing Exercise Name added to HEP Side bilateral Equipment Used off bottom step, rail contact Reps/Minutes 30-60 x2 B Comments cued tall posture, 1 LE at time, opp LE on step arch lift Standing Exercise Name added to HEP Resistance shoes doffed Reps/Minutes 3 sec hold x10 Comments good feedback resisted fwd/bck stepping Standing Exercise Name not performed but doing as HEP at home, painfree Equipment Used red loop band Reps/Minutes 10 ft x 2 each direction lateral stepping Standing Exercise Name not performed but doing as HEP at home, painfree Equipment Used red loop band Reps/Minutes 10 ft x 2 each direction step-ups, step downs Standing Exercise Name step/tap down forward- HEP reviewed Resistance rail more 6 than 4, light contact 2 Equipment Used 2 block > 4 stairs, 6 stairs with rail Comments cues for knee aligned with foot, painfree Manual Therapy Treatment Taping kinesiotape Body Location right knee Treatment Focus patellar stab, pain relief Type of Tape kinesiotape Skin Inspection intact Comments 2 Y strips; 1) anchor tibial tuberosity to med/lat patella then straight superior, 50% stretch 2) achor suprapatellar, 50% stretch med and lateral patella straight down Self-Care/Home Management Treatment Education Patient Education Home Exercise Program,Pain Management Other Education Initiated self STMs with rolling pin and can apply couple times day for increase flexibilty understood with good feedback response. Added arch lift standing vs sitting and calf stretching with less tension on knee. Extra time spent discussion if want to inquire further assessment swelling and achiness and if beneficial injection like did in past to support improvement in mobility and compliment PT. PT-OP-R Modalities Start: 08/22/21 17:51 Freq: Status: Active Protocol: Document 11/15/21 14:38 SP (Rec: 11/15/21 16:05 SP [id number]) Hot Pack/Cold Pack Treatment Cold Pack Location B knees Patient Position Hooklying Treatment Duration (minutes) 10 Patient Tolerance Good PT-OP-T Assessment and Plan Start: 08/22/21 17:51 Freq: Status: Active Protocol: Document 11/15/21 14:38 SP (Rec: 11/15/21 16:05 SP [id number]) Physical Therapy Assessment Goals Four Impairment no HEP Short Term Goal (STG) patient will be instrsucted in progressive HEP for purposes of rightknee strengthening and flexibility 10/11/21: goal met STG Duration goal met [employer] Goal (LTG) Patient will be indepenent and compliant to HEP and demonstrate improved right knee strength of 5/5 to allow him to return to prior level of function 10/25/21: continued progression of ther ex, knee strength 4+/ 5 but with c/o pain with resistance LTG Duration 12/09/21 Three Impairment antalgic gait, step-to pattern on stairs Short Term Goal (STG) patient will be able to walk with least restrictive device with minimal to no limp 10/11/21: no device, minimal limp. Able to do alternating step pattern ascending and descending but needs UE support, and descending is difficult with decreased control. 10/25/21: decreased eccentric control right LE with descending stairs, requires at least 1 railing for support STG Duration 09/22/21 [facility] Goal (LTG) Patient will be able to ascend and descend stairs with alternating step pattern with good control without UE support as evidence of improved strength and decreased pain right knee LTG Duration 12/09/21 Two Impairment pain right knee 5/10 on pain scale [facility] Goal (LTG) Decrease right knee pain to no greater than 2/10 on pain scale to allow patient to return to taking walks 10/25/21: Some progress, not as much time at higher pain levels but reporting occasional 7/10 pain LTG Duration 12/09/21 One Impairment activity tolerance Impairment Lower extremity functional scale 48% Short Term Goal (STG) Improve LEFS score to at least 60% as measure of improved right knee function 10/11/21: good goal progress 10/25/21: improved to 68% STG Duration goal met [facility] Goal (LTG) Improve LEFS score to at least 75% as measure of improved right knee function LTG Duration 12/09/21 Assessment Summary Assessment Pt beneficial introduction in self STMs, added arch lift and calf stretch for decrease stiffness and base support to progress knee stability, strength. Good feedback response. Discussed continue HEP strengthening have, can condense next tx. Messaged front for added appts, only 1 with PT next. Reapplied K taping R knee and provided CP for comfort end tx per pt request. Physical Therapy Plan Frequency and Duration Frequency of Treatment 2x/Week Duration of Treatment 6 weeks Plan of Care Start Date 10/25/21 Plan of Care End Date 12/09/21 Therapeutic Interventions Therapeutic Interventions Aquatic Therapy,Gait Training, Home Exercise Program,Manual Therapy,Neuromuscular Re- education,Patient/Caregiver Education,Self-Care/Home Management,Soft Tissue Mobilization,Taping, Therapeutic Activities, Therapeutic Exercises Next Visit Focus/Plan Next Note Type Treatment Note Next Visit Plan Assess response rolling muscle LEs. Continue K taping R knee, step down forward and LAQ added to HEP. Work on sit to stand from progressively lower height table. Progress functional strengthening: balance board, hurdles, uneven surface, WB into SLS activities for stability.
--- NOTE | 2021-11-22 14:22 | PT-OP ANOTE ---
unable to make it to appointment due to traffic delay [place] [address].
--- NOTE | 2021-11-30 16:20 | PT.OTRE ---
Current Diagnoses Pain in right knee (11/30/21) Pain in left knee (11/30/21) Difficulty in walking, not elsewhere classified (11/30/21) Weakness (11/30/21) Past Medical History (Last Reviewed 09/26/21 @ 15:07 by Kash Dorsey MD) Chicken pox (~1978) Erectile dysfunction Fractures (~2014) Melanoma Obstructive sleep apnea Prediabetes Skin cancer Visit Care Team Role Provider Type Pj Noyola MD Attending Provider Physician Family Provider Primary Care Provider Referring Provider Specialty: Family Practice Address: [address] [place] [address] Email: [email or web address] Physical Therapy Re-Evaluation PT-OP-A Visit Information Start: 08/22/21 17:51 Freq: Status: Active Protocol: Document 11/30/21 14:34 SAK (Rec: 11/30/21 15:16 SAK [id number]) Out-Patient Physical Therapy Visit Information Visit Information Visit Type Treatment Note Visit Start Time 14:34 Visit Stop Time 15:23 Total Visit Minutes 49 Visit Number 9 Evaluation Information Evaluation Date 08/23/21 PT-OP-B Current Condition Start: 08/22/21 17:51 Freq: Status: Active Protocol: Document 10/25/21 14:31 SAK (Rec: 10/25/21 15:36 SAK [id number]) Current Condition History of Current Condition Onset Date 6 wks Current Complaints right knee pain History of Current Condition history of left knee pain starting in college after fall onto knee from counter height ; swelling, did therapy, wore a brace, stopped running a few years later after spraining ankle. 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 5-6 weeks ago onset of right knee pain, no known injury except prolonged driving. Broke right arm 2014, wore compression socks, swelled in left knee. Cortisone shot helpful left knee. 2 other episodes of left knee pain over past couple years resolved with ice and heat. Used heat last night. Has neoprene sleeve wears while walking. Prior Treatments and Tests no imaging. Treatment Goals Patient/Caregiver Goals decrease right knee pain, be able to return to prior level of activity PT-OP-C Subjective Start: 08/22/21 17:51 Freq: Status: Active Protocol: Document 11/30/21 14:34 SAK (Rec: 11/30/21 15:16 [facility] [id number]) OP-PT Subjective Patient Comments Patient Comments States he feels like getting up from sitting easier, a little less pain. Most painful is straightening knee in a seated position with some grinding. Prolonged sitting is the hardest. Kinesiotape helpful but he hasn't gotten any for home use yet. PT-OP-G Mobility & Gait Start: 08/22/21 17:51 Freq: Status: Active Protocol: Document 08/23/21 08:15 [facility] (Rec: 08/28/21 18:00 [facility] [id number]) OP Gait Assessment Gait Gait Assistance Required: Independent Distance (Feet) 50 Assistive Devices Assistive Device Straight Cane Gait Deviations General Gait Pattern Antalgic,Decreased Stride Length,Decreased Feet Clearance,Lateral Trunk Lean Factors Limiting Gait Function Factors Limiting Gait Function Decreased Strength,Pain Stair Climbing Evaluation Devices Stair Climbing Assistive Devices Left Railing,Right Railing Technique/Endurance Stair Climbing Direction Ascend and Descend Stair Climbing Technique Step to Step Number of Steps Climbed 4 PT-OP-H Neuro Start: 08/22/21 17:51 Freq: Status: Active Protocol: Document 08/23/21 08:15 [facility] (Rec: 08/28/21 18:00 [facility] [id number]) Sensation Evaluation Gross Sensation Gross Sensation WNL PT-OP-J Posture/Palpation/Skin Start: 08/22/21 17:51 Freq: Status: Active Protocol: Document 08/23/21 08:15 [facility] (Rec: 08/28/21 18:00 [facility] [id number]) Posture Evaluation Position Standing Head/C-Spine Posture Forward Head T-Spine Posture Increased Kyphosis Knee Posture (R) Genu Valgus,(R) Excess Flexion Ankle/Foot Posture (L) Pronated,(R) Pronated Skin Assessment Edema Assessment right knee Edema Type Non-Pitting Edema Degree 2+ Edema Appearance Puffy Subjective Edema Description Tightness Circumference Measurement knee Location left 46.4, right 48 calf Location left 46.5, right 45.8 ankle Location left 30.9 right 32.3 PT-OP-K Range of Motion Start: 08/22/21 17:51 Freq: Status: Active Protocol: Document 08/23/21 08:15 SAK (Rec: 08/28/21 18:00 SAK [id number]) Hip Goniometric Range of Motion Hip Measured in Degrees Right Flexion w/Knee Flexed 95 Straight Leg Raise 45 Extension 0 Abduction 20 Internal Rotation 15 External Rotation 40 Left Flexion w/Knee Flexed 95 Straight Leg Raise 60 Extension 0 Abduction 20 Internal Rotation 15 External Rotation 40 Knee Goniometric Range of Motion Knee Measured in Degrees Right Flexion Active (degrees) 95 Flexion Passive (degrees) 98 Extension Active (degrees) 8 Extension Passive (degrees) 5 Left Knee ROM WFL Yes Knee ROM Limitations Knee ROM Limitations Pain,Swelling PT-OP-L Special Tests Start: 08/22/21 17:51 Freq: Status: Active Protocol: Document 08/23/21 08:15 SAK (Rec: 08/28/21 18:00 SAK [id number]) Special Tests Knee Special Tests Varus- 25 Degrees Test Results negative Valgus- 25 Degrees Test Results negative Juanjo Test Test Results negative Patellar Grind Test Test Results negative PT-OP-M Strength Start: 08/22/21 17:51 Freq: Status: Active Protocol: Document 08/23/21 08:15 SAK (Rec: 08/28/21 18:00 [facility] [id number]) Hip Strength Hip Manual Muscle Testing Right Flexion (L2) 4 Good Extension (S1) 4- Good- External Rotation 3+ Fair+ Internal Rotation 3+ Fair+ Left Flexion (L2) 4 Good Extension (S1) 4- Good- External Rotation 4- Good- Internal Rotation 4- Good- Knee Strength Knee Manual Muscle Testing Right Flexion (S2) 4- Good- Extension (L3) 4- Good- Left Flexion (S2) 4+ Good+ Extension (L3) 4+ Good+ Ankle/Foot Strength Ankle and Foot Manual Muscle Testing Right Dorsiflexion (L4) 4+ Good+ Plantarflexion (S1) 4+ Good+ Left Dorsiflexion (L4) 4+ Good+ Plantarflexion (S1) 4+ Good+ PT-OP-Q Treatments Start: 08/22/21 17:51 Freq: Status: Active Protocol: Document 11/30/21 14:34 SAK (Rec: 11/30/21 15:16 SAK [id number]) Cardio Equipment Bicycle (Upright) Duration (Minutes) 10 Resistance 8 Seat Position 9 Other cues for circular motion, activate/pull with hamstrings Gym Equipment Shuttle Recovery Unilateral Squats Resistance 50 Shuttle Recovery Platform Stable Reps/Time 10x2 Bilateral Squats Details with ball squeeze Resistance 87 Shuttle Recovery Platform Stable Reps/Time 10x2 Shuttle Balance red clips Details bal and weight shift f/b, stide, side Therapeutic Exercises Sitting Exercises sit to stand Sitting Exercise Name arms forward as needed Equipment Used mat table Reps/Minutes 10x Comments cued hip hinge and knee flexion to sit, glute drive ascend, denied pain Standing Exercises lateral stepping Standing Exercise Name not performed but doing as HEP at home, painfree Equipment Used red loop band Reps/Minutes 10 ft x 2 each direction heel raises Equipment Used ROBER Reps/Minutes 10 HC stretch Equipment Used ROBER Reps/Minutes 2x30 Manual Therapy Treatment Taping kinesiotape Body Location right knee Treatment Focus patellar stab, pain relief Type of Tape kinesiotape Skin Inspection intact Comments 2 Y strips; 1) anchor tibial tuberosity to med/lat patella then straight superior, 50% stretch 2) achor suprapatellar, 50% stretch med and lateral patella straight down Self-Care/Home Management Treatment Education Patient Education Home Exercise Program,Pain Management Other Education self-kinesiotape PT-OP-R Modalities Start: 08/22/21 17:51 Freq: Status: Active Protocol: Document 11/30/21 14:34 [facility] (Rec: 11/30/21 16:11 [facility] [id number]) Hot Pack/Cold Pack Treatment Cold Pack Location B knees Patient Position Hooklying Treatment Duration (minutes) 10 Patient Tolerance Good PT-OP-T Assessment and Plan Start: 08/22/21 17:51 Freq: Status: Active Protocol: Document 11/30/21 14:34 [facility] (Rec: 11/30/21 15:16 [facility] [id number]) Physical Therapy Assessment Goals Four Impairment no HEP Short Term Goal (STG) patient will be instrsucted in progressive HEP for purposes of rightknee strengthening and flexibility 10/11/21: goal met STG Duration goal met Fpc Goal (LTG) Patient will be indepenent and compliant to HEP and demonstrate improved right knee strength of 5/5 to allow him to return to prior level of function 10/25/21: continued progression of ther ex, knee strength 4+/ 5 but with c/o pain with resistance 9/22/22: No pain with resistance today, strength 5-/ 5 LTG Duration 01/30/22 Three Impairment antalgic gait, step-to pattern on stairs Short Term Goal (STG) patient will be able to walk with least restrictive device with minimal to no limp 10/11/21: no device, minimal limp. Able to do alternating step pattern ascending and descending but needs UE support, and descending is difficult with decreased control. 10/25/21: decreased eccentric control right LE with descending stairs, requires at least 1 railing for support 11/30/21: At times reports still limps but less frequent STG Duration 12/30/21 Waste Salvager Goal (LTG) Patient will be able to ascend and descend stairs with alternating step pattern with good control without UE support as evidence of improved strength and decreased pain right knee 11/30/21: reporting decrease in pain but still using UE support LTG Duration 01/30/22 Two Impairment pain right knee 5/10 on pain scale Fpc Goal (LTG) Decrease right knee pain to no greater than 2/10 on pain scale to allow patient to return to taking walks 10/25/21: Some progress, not as much time at higher pain levels but reporting occasional 7/10 pain 11/30/21: pain mostly 3-4/10, progressing. LTG Duration 01/30/22 One Impairment activity tolerance Impairment Lower extremity functional scale 48% Short Term Goal (STG) Improve LEFS score to at least 60% as measure of improved right knee function 10/11/21: good goal progress 10/25/21: improved to 68% 11/30/21: no significant change STG Duration goal met Fpc Goal (LTG) Improve LEFS score to at least 75% as measure of improved right knee function LTG Duration 01/30/22 Progress Towards Goals Progress Towards Goals Progressing Toward Goals Assessment Summary Assessment Improved functional strength for sit to stand, decreased pain. Less difficulty with stairs. Good goal progress. Feel patient would benefit from further skilled PT to help him fully achieve his PT goals. Physical Therapy Plan Frequency and Duration Frequency of Treatment 2x/Week Duration of Treatment 8 weeks Plan of Care Start Date 11/30/21 Plan of Care End Date 01/30/22 Therapeutic Interventions Therapeutic Interventions Aquatic Therapy,Gait Training, Home Exercise Program,Manual Therapy,Neuromuscular Re- education,Patient/Caregiver Education,Self-Care/Home Management,Soft Tissue Mobilization,Taping, Therapeutic Activities, Therapeutic Exercises Next Visit Focus/Plan Next Note Type Treatment Note Next Visit Plan Continue PT per POC to decrease pain, improve strength and functional activity tolerance.
--- NOTE | 2021-11-30 16:20 | PT.OPPOC ---
Physical, Occupational & Speech Therapy At [facility] Current Diagnoses Pain in right knee (11/30/21) Pain in left knee (11/30/21) Difficulty in walking, not elsewhere classified (11/30/21) Weakness (11/30/21) Visit Care Team Role Provider Type Pj Noyola MD Attending Provider Physician Family Provider Primary Care Provider Referring Provider Specialty: Family Practice Address: [address] [place] [address], [facility] Email: [email or web address] Plan Of Care PT-OP-T Assessment and Plan Start: 08/22/21 17:51 Freq: Status: Active Protocol: Document 11/30/21 14:34 SAK (Rec: 11/30/21 15:16 SAK [id number]) Physical Therapy Assessment Goals Four Impairment no HEP Short Term Goal (STG) patient will be instrsucted in progressive HEP for purposes of rightknee strengthening and flexibility 10/11/21: goal met STG Duration goal met Mcc Goal (LTG) Patient will be indepenent and compliant to HEP and demonstrate improved right knee strength of 5/5 to allow him to return to prior level of function 10/25/21: continued progression of ther ex, knee strength 4+/ 5 but with c/o pain with resistance 11/30/21: No pain with resistance today, strength 5-/ 5 LTG Duration 01/30/22 Three Impairment antalgic gait, step-to pattern on stairs Short Term Goal (STG) patient will be able to walk with least restrictive device with minimal to no limp 10/11/21: no device, minimal limp. Able to do alternating step pattern ascending and descending but needs UE support, and descending is difficult with decreased control. 10/25/21: decreased eccentric control right LE with descending stairs, requires at least 1 railing for support 11/30/21: At times reports still limps but less frequent STG Duration 12/30/21 Mcc Goal (LTG) Patient will be able to ascend and descend stairs with alternating step pattern with good control without UE support as evidence of improved strength and decreased pain right knee 11/30/21: reporting decrease in pain but still using UE support LTG Duration 01/30/22 Two Impairment pain right knee 5/10 on pain scale Tower Equipment Repairer Goal (LTG) Decrease right knee pain to no greater than 2/10 on pain scale to allow patient to return to taking walks 10/25/21: Some progress, not as much time at higher pain levels but reporting occasional 7/10 pain 11/30/21: pain mostly 3-4/10, progressing. LTG Duration 01/30/22 One Impairment activity tolerance Impairment Lower extremity functional scale 48% Short Term Goal (STG) Improve LEFS score to at least 60% as measure of improved right knee function 10/11/21: good goal progress 10/25/21: improved to 68% 11/30/21: no significant change STG Duration goal met Mcc Goal (LTG) Improve LEFS score to at least 75% as measure of improved right knee function LTG Duration 01/30/22 Progress Towards Goals Progress Towards Goals Progressing Toward Goals Assessment Summary Assessment Improved functional strength for sit to stand, decreased pain. Less difficulty with stairs. Good goal progress. Feel patient would benefit from further skilled PT to help him fully achieve his PT goals. Physical Therapy Plan Frequency and Duration Frequency of Treatment 2x/Week Duration of Treatment 8 weeks Plan of Care Start Date 11/30/21 Plan of Care End Date 01/30/22 Therapeutic Interventions Therapeutic Interventions Aquatic Therapy,Gait Training, Home Exercise Program,Manual Therapy,Neuromuscular Re- education,Patient/Caregiver Education,Self-Care/Home Management,Soft Tissue Mobilization,Taping, Therapeutic Activities, Therapeutic Exercises Next Visit Focus/Plan Next Note Type Treatment Note Next Visit Plan Continue PT per POC to decrease pain, improve strength and functional activity tolerance. Plan of Care Dates Plan of Care Start Date 11/30/21 Plan of Care End Date 01/30/22 Electronically Signed by: Reema Long, PT 11/30/21 1971 If you are in agreement with this Plan of Care, please return a signed and dated copy. I have reviewed this Plan of Care and certify that the skilled therapy services above are required to meet the patient?s needs. Physician Signature Date Printed Name and Credentials Clinical Instructor Signature Printed Name and Credentials
--- NOTE | 2022-01-10 16:06 | PT-OP ANOTE ---
cancelled due to schedule conflict
--- NOTE | 2022-01-17 16:19 | PT.OTN ---
Current Diagnoses Pain in right knee (01/17/22) Pain in left knee (01/17/22) Difficulty in walking, not elsewhere classified (01/17/22) Weakness (01/17/22) Physical Therapy Treatment Note PT-OP-A Visit Information Start: 08/22/21 17:51 Freq: Status: Active Protocol: Document 01/17/22 15:15 SAK (Rec: 01/17/22 16:19 SAK [id number]) Out-Patient Physical Therapy Visit Information Visit Information Visit Type Treatment Note Visit Start Time 15:15 Visit Stop Time 16:00 Total Visit Minutes 45 Visit Number 10 PT-OP-B Current Condition Start: 08/22/21 17:51 Freq: Status: Active Protocol: Document 10/25/21 14:31 SAK (Rec: 10/25/21 15:36 SAK [id number]) Current Condition History of Current Condition Onset Date 6 wks Current Complaints right knee pain History of Current Condition history of left knee pain starting in college after fall onto knee from counter height ; swelling, did therapy, wore a brace, stopped running a few years later after spraining ankle. 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 5-6 weeks ago onset of right knee pain, no known injury except prolonged driving. Broke right arm 2015, wore compression socks, swelled in left knee. Cortisone shot helpful left knee. 2 other episodes of left knee pain over past couple years resolved with ice and heat. Used heat last night. Has neoprene sleeve wears while walking. Prior Treatments and Tests no imaging. Treatment Goals Patient/Caregiver Goals decrease right knee pain, be able to return to prior level of activity PT-OP-C Subjective Start: 08/22/21 17:51 Freq: Status: Active Protocol: Document 01/17/22 15:15 SAK (Rec: 01/17/22 16:19 SAK [id number]) OP-PT Subjective Patient Comments Patient Comments Has lost 27 lbs, feels better, knees twingey some. Doesn' t feel it much. Not sure he has to come for more PT. Compliant to HEP. JUst got kinesiotape, hasn't used on own yet. Does squats more often because minimal pain. Patient Reported Progress Improving PT-OP-G Mobility & Gait Start: 08/22/21 17:51 Freq: Status: Active Protocol: Document 08/23/21 08:15 [facility] (Rec: 08/28/21 18:00 [facility] [id number]) OP Gait Assessment Gait Gait Assistance Required: Independent Distance (Feet) 50 Assistive Devices Assistive Device Straight Cane Gait Deviations General Gait Pattern Antalgic,Decreased Stride Length,Decreased Feet Clearance,Lateral Trunk Lean Factors Limiting Gait Function Factors Limiting Gait Function Decreased Strength,Pain Stair Climbing Evaluation Devices Stair Climbing Assistive Devices Left Railing,Right Railing Technique/Endurance Stair Climbing Direction Ascend and Descend Stair Climbing Technique Step to Step Number of Steps Climbed 4 PT-OP-H Neuro Start: 08/22/21 17:51 Freq: Status: Active Protocol: Document 08/23/21 08:15 SAK (Rec: 08/28/21 18:00 [facility] [id number]) Sensation Evaluation Gross Sensation Gross Sensation WNL PT-OP-J Posture/Palpation/Skin Start: 08/22/21 17:51 Freq: Status: Active Protocol: Document 08/23/21 08:15 [facility] (Rec: 08/28/21 18:00 [facility] [id number]) Posture Evaluation Position Standing Head/C-Spine Posture Forward Head T-Spine Posture Increased Kyphosis Knee Posture (R) Genu Valgus,(R) Excess Flexion Ankle/Foot Posture (L) Pronated,(R) Pronated Skin Assessment Edema Assessment right knee Edema Type Non-Pitting Edema Degree 2+ Edema Appearance Puffy Subjective Edema Description Tightness Circumference Measurement knee Location left 46.4, right 48 calf Location left 46.5, right 45.8 ankle Location left 30.9 right 32.3 PT-OP-K Range of Motion Start: 08/22/21 17:51 Freq: Status: Active Protocol: Document 08/23/21 08:15 SAK (Rec: 08/28/21 18:00 [facility] [id number]) Hip Goniometric Range of Motion Hip Right Flexion w/Knee Flexed 95 Straight Leg Raise 45 Extension 0 Abduction 20 Internal Rotation 15 External Rotation 40 Left Flexion w/Knee Flexed 95 Straight Leg Raise 60 Extension 0 Abduction 20 Internal Rotation 15 External Rotation 40 Knee Goniometric Range of Motion Knee Right Flexion Active (degrees) 95 Flexion Passive (degrees) 98 Extension Active (degrees) 8 Extension Passive (degrees) 5 Left Knee ROM WFL Yes Knee ROM Limitations Knee ROM Limitations Pain,Swelling PT-OP-L Special Tests Start: 08/22/21 17:51 Freq: Status: Active Protocol: Document 08/23/21 08:15 [facility] (Rec: 08/28/21 18:00 [facility] [id number]) Special Tests Knee Special Tests Varus- 25 Degrees Test Results negative Valgus- 25 Degrees Test Results negative Juanjo Test Test Results negative Patellar Grind Test Test Results negative PT-OP-M Strength Start: 08/22/21 17:51 Freq: Status: Active Protocol: Document 08/23/21 08:15 [facility] (Rec: 08/28/21 18:00 [facility] [id number]) Hip Strength Hip Manual Muscle Testing Right Flexion (L2) 4 Good Extension (S1) 4- Good- External Rotation 3+ Fair+ Internal Rotation 3+ Fair+ Left Flexion (L2) 4 Good Extension (S1) 4- Good- External Rotation 4- Good- Internal Rotation 4- Good- Knee Strength Knee Manual Muscle Testing Right Flexion (S2) 4- Good- Extension (L3) 4- Good- Left Flexion (S2) 4+ Good+ Extension (L3) 4+ Good+ Ankle/Foot Strength Ankle and Foot Manual Muscle Testing Right Dorsiflexion (L4) 4+ Good+ Plantarflexion (S1) 4+ Good+ Left Dorsiflexion (L4) 4+ Good+ Plantarflexion (S1) 4+ Good+ PT-OP-Q Treatments Start: 08/22/21 17:51 Freq: Status: Active Protocol: Document 01/17/22 15:15 [facility] (Rec: 01/17/22 16:19 [facility] [id number]) Therapeutic Exercises Supine Exercises figure 4 stretch Reps/Minutes 2x30 HS stretch Reps/Minutes 2x30 shani Therapeutic Activity Therapeutic Activity MMT LE's Reps/Minutes 10 Comments also flexibility testing LE's Manual Therapy Treatment Taping kinesiotape Body Location right knee Treatment Focus patellar stab, pain relief, edema reduction Type of Tape kinesiotape Skin Inspection intact Comments 2 Y strips; 1) anchor tibial tuberosity to med/lat patella then straight superior, 50% stretch 2) achor suprapatellar, 50% stretch med and lateral patella straight down Self-Care/Home Management Treatment Education Patient Education Home Exercise Program,Pain Management Other Education self-kinesiotape for edema reduction and support/pain relief HEP and activity review Added figure 4 stretch PT-OP-R Modalities Start: 08/22/21 17:51 Freq: Status: Active Protocol: Document 11/30/21 14:34 SAK (Rec: 11/30/21 16:11 SAK [id number]) Hot Pack/Cold Pack Treatment Cold Pack Location B knees Patient Position Hooklying Treatment Duration (minutes) 10 Patient Tolerance Good PT-OP-T Assessment and Plan Start: 08/22/21 17:51 Freq: Status: Active Protocol: Document 01/17/22 15:15 SAK (Rec: 01/17/22 16:19 [facility] [id number]) Physical Therapy Assessment Impairments Impairments Activity Tolerance,Edema,Gait, Pain,Strength Goals Four Impairment no HEP Short Term Goal (STG) patient will be instrsucted in progressive HEP for purposes of right knee strengthening and flexibility 10/11/21: goal met STG Duration goal met Jail Goal (LTG) Patient will be indepenent and compliant to HEP and demonstrate improved right knee strength of 5/5 to allow him to return to prior level of function 10/25/21: continued progression of ther ex, knee strength 4+/ 5 but with c/o pain with resistance 11/30/21: No pain with resistance today, strength 5-/ 5 01/17/22: pain 5/5, mild discomfort with knee ext and hip ext LTG Duration 01/30/22 Three Impairment antalgic gait, step-to pattern on stairs Short Term Goal (STG) patient will be able to walk with least restrictive device with minimal to no limp 10/11/21: no device, minimal limp. Able to do alternating step pattern ascending and descending but needs UE support, and descending is difficult with decreased control. 10/25/21: decreased eccentric control right LE with descending stairs, requires at least 1 railing for support 11/30/21: At times reports still limps but less frequent 01/16/22: no limp STG Duration 12/30/21 Jail Goal (LTG) Patient will be able to ascend and descend stairs with alternating step pattern with good control without UE support as evidence of improved strength and decreased pain right knee 11/30/21: reporting decrease in pain but still using UE support 01/16/22: not limping with gait now LTG Duration 01/30/22 Two Impairment pain right knee 5/10 on pain scale Disassembler Goal (LTG) Decrease right knee pain to no greater than 2/10 on pain scale to allow patient to return to taking walks 10/25/21: Some progress, not as much time at higher pain levels but reporting occasional 7/10 pain 11/30/21: pain mostly 3-4/10, progressing. 01/16/22: pain 1/10 on pain scale LTG Duration 01/30/22 One Impairment activity tolerance Impairment Lower extremity functional scale 48% Short Term Goal (STG) Improve LEFS score to at least 60% as measure of improved right knee function 10/11/21: good goal progress 10/25/21: improved to 68% 11/30/21: no significant change STG Duration goal met Jail Goal (LTG) Improve LEFS score to at least 75% as measure of improved right knee function 01/16/22: 78% LTG Duration 01/30/22 Assessment Summary Assessment Patient verbalizing improvement in function, pain 1/10, some swelling persists but not painful. Receptive to instruction in kinesiotape and gentle retrograde massage for edema reduction, add light weights for LAQ, SAQ, 4-way leg lifts. Recommend continue with HEP. Return for follow- up in 3-4 weeks for reassessment and determine need for further PT. Physical Therapy Plan Frequency and Duration Frequency of Treatment 2x/Week Duration of treatment (weeks) 8 Plan of Care Start Date 11/30/21 Plan of Care End Date 01/30/22 Therapeutic Interventions Therapeutic Interventions Aquatic Therapy,Gait Training, Home Exercise Program,Manual Therapy,Neuromuscular Re- education,Patient/Caregiver Education,Self-Care/Home Management,Soft Tissue Mobilization,Taping, Therapeutic Activities, Therapeutic Exercises Next Visit Focus/Plan Next Note Type Re-Evaluation Next Visit Plan determine need for further PT, asses self-taping, HEP, progress HEP as indicated.
--- NOTE | 2022-02-26 08:53 | PT.OPDS ---
Current Diagnoses Pain in right knee (01/17/22) Pain in left knee (01/17/22) Difficulty in walking, not elsewhere classified (01/17/22) Weakness (01/17/22) Visit Care Team Role Provider Type Pj Noyola MD Attending Provider Physician Family Provider Primary Care Provider Referring Provider Specialty: Family Practice Address: [address] [place] [address] Email: [email or web address] Visit Number Visit Number 10 Discharge Summary PT-OP-B Current Condition Start: 08/22/21 17:51 Freq: Status: Active Protocol: Document 10/25/21 14:31 SAK (Rec: 10/25/21 15:36 SAK [id number]) Current Condition History of Current Condition Onset Date 6 wks Current Complaints right knee pain History of Current Condition history of left knee pain starting in college after fall onto knee from counter height ; swelling, did therapy, wore a brace, stopped running a few years later after spraining ankle. 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 5-6 weeks ago onset of right knee pain, no known injury except prolonged driving. Broke right arm 2015, wore compression socks, swelled in left knee. Cortisone shot helpful left knee. 2 other episodes of left knee pain over past couple years resolved with ice and heat. Used heat last night. Has neoprene sleeve wears while walking. Prior Treatments and Tests no imaging. Treatment Goals Patient/Caregiver Goals decrease right knee pain, be able to return to prior level of activity PT-OP-C Subjective Start: 08/22/21 17:51 Freq: Status: Active Protocol: Document 01/17/22 15:15 SAK (Rec: 01/17/22 16:19 SAK [id number]) OP-PT Subjective Patient Comments Patient Comments Has lost 27 lbs, feels better, knees twingey some. Doesn' t feel it much. Not sure he has to come for more PT. Compliant to HEP. JUst got kinesiotape, hasn't used on own yet. Does squats more often because minimal pain. Patient Reported Progress Improving PT-OP-G Mobility & Gait Start: 08/22/21 17:51 Freq: Status: Active Protocol: Document 08/23/21 08:15 [facility] (Rec: 08/28/21 18:00 [facility] [id number]) OP Gait Assessment Gait Gait Assistance Required: Independent Distance (Feet) 50 Assistive Devices Assistive Device Straight Cane Gait Deviations General Gait Pattern Antalgic,Decreased Stride Length,Decreased Feet Clearance,Lateral Trunk Lean Factors Limiting Gait Function Factors Limiting Gait Function Decreased Strength,Pain Stair Climbing Evaluation Devices Stair Climbing Assistive Devices Left Railing,Right Railing Technique/Endurance Stair Climbing Direction Ascend and Descend Stair Climbing Technique Step to Step Number of Steps Climbed 4 PT-OP-H Neuro Start: 08/22/21 17:51 Freq: Status: Active Protocol: Document 08/23/21 08:15 [facility] (Rec: 08/28/21 18:00 [facility] [id number]) Sensation Evaluation Gross Sensation Gross Sensation WNL PT-OP-J Posture/Palpation/Skin Start: 08/22/21 17:51 Freq: Status: Active Protocol: Document 08/23/21 08:15 [facility] (Rec: 08/28/21 18:00 [facility] [id number]) Posture Evaluation Position Standing Head/C-Spine Posture Forward Head T-Spine Posture Increased Kyphosis Knee Posture (R) Genu Valgus,(R) Excess Flexion Ankle/Foot Posture (L) Pronated,(R) Pronated Skin Assessment Edema Assessment right knee Edema Type Non-Pitting Edema Degree 2+ Edema Appearance Puffy Subjective Edema Description Tightness Circumference Measurement knee Location left 46.4, right 48 calf Location left 46.5, right 45.8 ankle Location left 30.9 right 32.3 PT-OP-K Range of Motion Start: 08/22/21 17:51 Freq: Status: Active Protocol: Document 08/23/21 08:15 [facility] (Rec: 08/28/21 18:00 [facility] [id number]) Hip Goniometric Range of Motion Hip Right Flexion w/Knee Flexed 95 Straight Leg Raise 45 Extension 0 Abduction 20 Internal Rotation 15 External Rotation 40 Left Flexion w/Knee Flexed 95 Straight Leg Raise 60 Extension 0 Abduction 20 Internal Rotation 15 External Rotation 40 Knee Goniometric Range of Motion Knee Right Flexion Active (degrees) 95 Flexion Passive (degrees) 98 Extension Active (degrees) 8 Extension Passive (degrees) 5 Left Knee ROM WFL Yes Knee ROM Limitations Knee ROM Limitations Pain,Swelling PT-OP-L Special Tests Start: 08/22/21 17:51 Freq: Status: Active Protocol: Document 08/23/21 08:15 [facility] (Rec: 08/28/21 18:00 [facility] [id number]) Special Tests Knee Special Tests Varus- 25 Degrees Test Results negative Valgus- 25 Degrees Test Results negative Juanjo Test Test Results negative Patellar Grind Test Test Results negative PT-OP-M Strength Start: 08/22/21 17:51 Freq: Status: Active Protocol: Document 08/23/21 08:15 [facility] (Rec: 08/28/21 18:00 [facility] [id number]) Hip Strength Hip Manual Muscle Testing Right Flexion (L2) 4 Good Extension (S1) 4- Good- External Rotation 3+ Fair+ Internal Rotation 3+ Fair+ Left Flexion (L2) 4 Good Extension (S1) 4- Good- External Rotation 4- Good- Internal Rotation 4- Good- Knee Strength Knee Manual Muscle Testing Right Flexion (S2) 4- Good- Extension (L3) 4- Good- Left Flexion (S2) 4+ Good+ Extension (L3) 4+ Good+ Ankle/Foot Strength Ankle and Foot Manual Muscle Testing Right Dorsiflexion (L4) 4+ Good+ Plantarflexion (S1) 4+ Good+ Left Dorsiflexion (L4) 4+ Good+ Plantarflexion (S1) 4+ Good+ PT-OP-T Assessment and Plan Start: 08/22/21 17:51 Freq: Status: Active Protocol: Document 01/17/22 15:15 [facility] (Rec: 01/17/22 16:19 [facility] [id number]) Physical Therapy Assessment Impairments Impairments Activity Tolerance,Edema,Gait, Pain,Strength Goals Four Impairment no HEP Short Term Goal (STG) patient will be instrsucted in progressive HEP for purposes of right knee strengthening and flexibility 10/11/21: goal met STG Duration goal met Chief Lending Officer Goal (LTG) Patient will be indepenent and compliant to HEP and demonstrate improved right knee strength of 5/5 to allow him to return to prior level of function 10/25/21: continued progression of ther ex, knee strength 4+/ 5 but with c/o pain with resistance 11/30/21: No pain with resistance today, strength 5-/ 5 01/17/22: pain 5/5, mild discomfort with knee ext and hip ext LTG Duration 01/30/22 Three Impairment antalgic gait, step-to pattern on stairs Short Term Goal (STG) patient will be able to walk with least restrictive device with minimal to no limp 10/11/21: no device, minimal limp. Able to do alternating step pattern ascending and descending but needs UE support, and descending is difficult with decreased control. 10/25/21: decreased eccentric control right LE with descending stairs, requires at least 1 railing for support 11/30/21: At times reports still limps but less frequent 01/16/22: no limp STG Duration 12/30/21 Chief Lending Officer Goal (LTG) Patient will be able to ascend and descend stairs with alternating step pattern with good control without UE support as evidence of improved strength and decreased pain right knee 11/30/21: reporting decrease in pain but still using UE support 01/16/22: not limping with gait now LTG Duration 01/30/22 Two Impairment pain right knee 5/10 on pain scale Chief Lending Officer Goal (LTG) Decrease right knee pain to no greater than 2/10 on pain scale to allow patient to return to taking walks 10/25/21: Some progress, not as much time at higher pain levels but reporting occasional 7/10 pain 11/30/21: pain mostly 3-4/10, progressing. 01/16/22: pain 1/10 on pain scale LTG Duration 01/30/22 One Impairment activity tolerance Impairment Lower extremity functional scale 48% Short Term Goal (STG) Improve LEFS score to at least 60% as measure of improved right knee function 10/11/21: good goal progress 10/25/21: improved to 68% 11/30/21: no significant change STG Duration goal met Jail Goal (LTG) Improve LEFS score to at least 75% as measure of improved right knee function 01/16/22: 78% LTG Duration 01/30/22 Assessment Summary Assessment Patient verbalizing improvement in function, pain 1/10, some swelling persists but not painful. Receptive to instruction in kinesiotape and gentle retrograde massage for edema reduction, add light weights for LAQ, SAQ, 4-way leg lifts. Recommend continue with HEP. Return for follow- up in 3-4 weeks for reassessment and determine need for further PT. Physical Therapy Plan Frequency and Duration Frequency of Treatment 2x/Week Duration of treatment (weeks) 8 Plan of Care Start Date 11/30/21 Plan of Care End Date 01/30/22 Therapeutic Interventions Therapeutic Interventions Aquatic Therapy,Gait Training, Home Exercise Program,Manual Therapy,Neuromuscular Re- education,Patient/Caregiver Education,Self-Care/Home Management,Soft Tissue Mobilization,Taping, Therapeutic Activities, Therapeutic Exercises Next Visit Focus/Plan Next Note Type Re-Evaluation Next Visit Plan determine need for further PT, asses self-taping, HEP, progress HEP as indicated.
== END 2022-02-28 09:42 | disposition home or self-care (01) ==
LOC: PHYS 15:15
PROVIDERS: Family Provider Family Medicine; PCP Family Medicine; Referring Provider Family Medicine; Visit Provider Family Medicine
DX: M25.561 Pain in right knee (principal); M25.562 Pain in left knee; R26.2 Difficulty in walking, not elsewhere classified; R53.1 Weakness
CPT/HCPCS: 97010; 97014; 97110; 97112; 97140; 97162; 97530; 97535; G0283

== ENCOUNTER → 2023-11-14 07:35 | Outpatient (CLI) | payer OTHER, SELFPAY ==
--- NOTE | 2023-11-14 07:36 | DI.US.S_ITS ---
PROCEDURE: US ABDOMEN LIMITED INDICATIONS: umbilical hernia TECHNIQUE: Soft tissue ultrasound COMPARISON: None. FINDINGS: Soft tissue ultrasound of the ventral abdominal wall was obtained shows a ventral hernia periumbilical measuring 2.7 x 1.5 x 2.5 cm. No change on Valsalva maneuvers. Fascial defect measures 1.3 cm. Hernia contents stent not completely compress IMPRESSION: Positive periumbilical ventral hernia Approved by: Emmanuel Luke M.D. on 11/14/2023 at 17:12
== END ==
PROVIDERS: Family Provider Family Medicine; PCP Family Medicine; Referring Provider Family Medicine; Visit Provider Family Medicine
DX: K42.9 Umbilical hernia without obstruction or gangrene (principal)
CPT/HCPCS: 76705

== ENCOUNTER 2024-01-07 09:36 | Day surgery (SDC) | payer OTHER, SELFPAY ==
[2024-01-06 11:49] VITALS: BMI 31.8
[2024-01-07] VITALS (9 sets, daily range): BP systolic 123–134; BP diastolic 77–85; PULSE 50–68; RESP 11–18; TEMP 36–37.1; O2SAT 96–99; BMI 31.4
[2024-01-07] MEDS: LACTATED RINGERS 1,000 ML 42 ML IV (10:25)
--- NOTE | 2024-01-07 11:15 | PM.PREOP ---
Pre-operative Note COVID-19 COVID-19 status: Not tested Interval Note History & Physical reviewed/Exam performed by Physician: Yes Changes to H&P: No ASA Class (for procedural sedation): II
[2024-01-07] MEDS: CEFAZOLIN 2 GM/100 ML PREMIX 100 ML IV (11:40)
[2024-01-07] MEDS: BUPIVACAINE 0.5% (PF) 30 ML, EPINEPHrine 0.15 MG INJ (11:48)
--- NOTE | 2024-01-07 11:52 | SUR.OPER ---
Supine on padded OR bed, head on pillow, arms secured on padded arm boards at <90 degrees abduction, legs uncrossed, safety belt at thigh, tape over blanket over lower legs.
--- NOTE | 2024-01-07 12:43 | PM.OP.1 ---
Operative Date/Time/Diagnoses Date of procedure: 01/07/24 Time of procedure: 12:43 Pre-op diagnosis: Umbilical hernia Post-op diagnosis: same Procedure & Clinicians Procedure: Open umbilical hernia repair with mesh Same procedure as scheduled: Yes Surgeon: Davidson Mello Click Yes if Unassisted: Yes Anesthesia Type: General Operative Notes Procedure in detail: Ancef was administered. The patient was brought to the operating room, placed on the table in the supine position and general endotracheal anesthesia was induced. The abdomen was prepped and draped in the usual fashion. A time-out was performed. A 6 cm curvilinear incision was made inferior to the umbilicus. The hernia sac was dissected free from the surrounding subcutaneous adipose tissue. The sac was dissected off the umbilical stalk using a combination of cautery, sharp and blunt dissection. The hernia sac was dissected free from the fascial ring and allowed to drop back down into the abdomen. The fascial defect was about 3 cm. The fascia was then closed transversely with for interrupted 0 Ethibond sutures. The subcutaneous adipose tissue was cleared off of the anterior sheath circumferentially about 2 cm in each direction. A piece of polypropylene mesh was trimmed to fit over the fascial closure and secured with Tisseel. Once the Tisseel was dried the umbilical skin was tacked down to the mesh with a single 3-0 Vicryl stitch. The skin was closed with multiple interrupted 3-0 Vicryl dermal sutures followed by a running 4 Monocryl subcuticular closure. Steri-Strips were applied and an abdominal binder was applied. EBL: 10 mL Post-operative Condition: stable Disposition: PACU
[2024-01-07] MEDS: ACETAMINOPHEN 325 MG TABLET 650 MG PO (12:58)
--- NOTE | 2024-01-07 13:01 | SUR.PHASEI ---
Pt with headache. States he take Ibuprofen at home. Spoke with Joseline CAREY in OR #1. See new order.
[2024-01-07] MEDS: IBUPROFEN 400 MG TABLET PO (13:25)
--- NOTE | 2024-01-07 14:19 | SUR.PHASEII ---
Clarified abdominal binder order with Dr. Mello. VVO for abdominal binder, which was placed.
== END 2024-01-07 14:03 | disposition home or self-care (01) ==
PROVIDERS: Family Provider Family Medicine; PCP Family Medicine; Referring Provider Surgery; Visit Provider Surgery
PROC: (CPT 49593; principal; 2024-01-07 11:15)
DX: K42.9 Umbilical hernia without obstruction or gangrene (principal)
CPT/HCPCS: 49593; J0171; J0330; J0690; J2250; J2405; J2704; J3010